=== PATIENT | female | born 1950 | race Hispanic/Latino ===

== ENCOUNTER → 2018-01-12 | Day surgery (SDC) | payer OTHER ==
[2018-01-06 15:33] LABS: BASOPHILS % 0.3 % (0.0-1.0); EOSINOPHILS # (AUTO) 0.1 (0.0-0.4); EOSINOPHILS % 1.9 % (0.0-6.0); HEMATOCRIT 28.6 % (34.2-44.1); HEMOGLOBIN 9.1 g/dL (12.0-16.0); LYMPHOCYTES % 14.4 % (18.0-39.1); MEAN CORPUSCULAR HEMOGLOBIN 26.8 pg (28-32); MEAN CORPUSCULAR HGB CONC 31.8 g/dL (31-35); MEAN CORPUSCULAR VOLUME 84.1 fL (81-99); MONOCYTES # (AUTO) 0.6 (0.2-0.8); MONOCYTES % 8.9 % (4.4-11.3); NEUTROPHILS # (AUTO) 5.1 (2.1-6.9); NEUTROPHILS % 73.8 % (38.7-80.0); PLATELET COUNT 235 x10e3/uL (140-360); RED CELL DISTRIBUTION WIDTH 15.4 % (11.7-14.4)
[~2018-01-12] MED LIST: ALENDRONATE SOD35 MG PO; AMLODIPINE BESY10 MG PO; CARVEDILOL3.125 MG PO; CINNAMON500 MG PO; DAILY VITAMIN1 EAC4 PO; DICLOFENAC PO; FENTANYL CITRATE/PF 100MCG/2 ML INJ ONE; GABAPENTIN300 MG PO; GAS-X125 MG PO; GLYCOPYRROLATE INJ 1MG/ 5 ML SYR ONE; LEXAPRO10 MG PO; LOSARTAN POTAS100 MG PO; LOVASTATIN20 MG PO; MIDAZOLAM HCL 2 MG/2 ML VIAL ONE; OMEPRAZOLE40 MG PO; PROPOFOL IV EMULSION 10 MG/ML 50 ML VIAL ONE; [UNRECOGNIZED DRUG - OTHER] SC
== END | disposition home or self-care (01) ==
LOC: OR 06:36
PROVIDERS: ATTEND Internal Medicine Gastroenterology
DX: K29.50 Unspecified chronic gastritis without bleeding (principal); K31.7 Polyp of stomach and duodenum; K52.9 Noninfective gastroenteritis and colitis, unspecified; K57.30 Diverticulosis of large intestine without perforation or abscess without bleeding; K62.7 Radiation proctitis; K44.9 Diaphragmatic hernia without obstruction or gangrene; K21.9 Gastro-esophageal reflux disease without esophagitis; K64.1 Second degree hemorrhoids; E11.9 Type 2 diabetes mellitus without complications; I25.10 Atherosclerotic heart disease of native coronary artery without angina pectoris; I11.0 Hypertensive heart disease with heart failure; I50.9 Heart failure, unspecified; I44.4 Left anterior fascicular block; E78.5 Hyperlipidemia, unspecified; M19.90 Unspecified osteoarthritis, unspecified site; R07.89 Other chest pain; F32.9 Major depressive disorder, single episode, unspecified; Z01.810 Encounter for preprocedural cardiovascular examination; Z01.812 Encounter for preprocedural laboratory examination; Z79.4 Long term (current) use of insulin; Z68.35 Body mass index [BMI] 35.0-35.9, adult; Z85.41 Personal history of malignant neoplasm of cervix uteri; Z87.891 Personal history of nicotine dependence
CPT/HCPCS: 36415; 43239; 45380; 85025; 93005; J2250

== ENCOUNTER → 2018-02-16 | Day surgery (SDC) | payer OTHER ==
[2018-02-11 14:45] LABS: BASOPHILS % 0.4 % (0.0-1.0); EOSINOPHILS # (AUTO) 0.1 (0.0-0.4); EOSINOPHILS % 1.7 % (0.0-6.0); HEMATOCRIT 27.7 % (34.2-44.1); HEMOGLOBIN 8.4 g/dL (12.0-16.0); LYMPHOCYTES # (AUTO) 1.1 (1.0-3.2); LYMPHOCYTES % 13.5 % (18.0-39.1); MEAN CORPUSCULAR HEMOGLOBIN 25.5 pg (28-32); MEAN CORPUSCULAR HGB CONC 30.3 g/dL (31-35); MEAN CORPUSCULAR VOLUME 83.9 fL (81-99); MONOCYTES # (AUTO) 0.5 (0.2-0.8); MONOCYTES % 5.8 % (4.4-11.3); NEUTROPHILS # (AUTO) 5.9 (2.1-6.9); NEUTROPHILS % 75.6 % (38.7-80.0); PLATELET COUNT 414 x10e3/uL (140-360); RED CELL DISTRIBUTION WIDTH 15.3 % (11.7-14.4)
[2018-02-11 15:41] LABS: EOSINOPHILS % (MANUAL) 1 % (0-7); HYPOCHROMASIA SLIGHT; LYMPHOCYTES % (MANUAL) 12 % (19-48); MONOCYTES % (MANUAL) 9 % (3.4-9.0); NEUTROPHILS % (MANUAL) 77 % (40-74); PLATELET ESTIMATE SLIGHTLY INCREASED; PLATELET MORPHOLOGY COMMENT NORMAL; RBC MORPHOLOGY COMMENT NORMAL
[~2018-02-16] MED LIST changes: +CENTRUM COMPLE1 EACH PO; +CLONIDINE HCL0.1 MG PO; +DEXTROSE 5% 250ML 250 ML IV ONE; +FISH OIL 1,0001 EAC2 PO; -GLYCOPYRROLATE INJ 1MG/ 5 ML SYR ONE; +TRESIBA SC
== END | disposition home or self-care (01) ==
LOC: OR 07:55
PROVIDERS: ATTEND Internal Medicine Gastroenterology
DX: K31.7 Polyp of stomach and duodenum (principal); K29.50 Unspecified chronic gastritis without bleeding; K44.9 Diaphragmatic hernia without obstruction or gangrene; I11.0 Hypertensive heart disease with heart failure; I50.9 Heart failure, unspecified; E11.9 Type 2 diabetes mellitus without complications; K58.9 Irritable bowel syndrome, unspecified; D64.9 Anemia, unspecified; K62.7 Radiation proctitis; K64.8 Other hemorrhoids; N28.9 Disorder of kidney and ureter, unspecified; R76.8 Other specified abnormal immunological findings in serum; R82.90 Unspecified abnormal findings in urine; Z01.810 Encounter for preprocedural cardiovascular examination; Z01.812 Encounter for preprocedural laboratory examination; Z68.32 Body mass index [BMI] 32.0-32.9, adult; Z85.41 Personal history of malignant neoplasm of cervix uteri
CPT/HCPCS: 36415 ×2; 43239; 82948; 85025; 93005; J2250

== ENCOUNTER → 2018-12-22 | Outpatient (CLI) | payer MEDICARE ==
[~2018-12-22] MED LIST changes: -DEXTROSE 5% 250ML 250 ML IV ONE; -FENTANYL CITRATE/PF 100MCG/2 ML INJ ONE; -MIDAZOLAM HCL 2 MG/2 ML VIAL ONE; -PROPOFOL IV EMULSION 10 MG/ML 50 ML VIAL ONE; +REGADENOSON 0.4 MG/5 ML SYR IV ONE
--- NOTE | 2018-12-24 14:22 | Cardiology Report ---
DATE OF STUDY: December 22, 2018 LEXISCAN NUCLEAR STRESS TEST TECHNIQUE: The patient was given 10.9 millicuries of Myoview. Resting images were obtained in the horizontal long axis and vertical long axis and short axis. The patient was then hooked up to the EKG machine. Lexiscan was infused over 15 seconds. About 30 seconds after Lexiscan infusion, the patient was given 33 millicuries of Myoview. Stress images were obtained 30 minutes after completion of Lexiscan infusion. Stress images were obtained in the horizontal long axis and vertical long axis and short axis. RESULTS 1. The resting EKG demonstrated normal sinus rhythm with nonspecific ST and T wave changes. 2. There were no EKG changes and no symptoms during Lexiscan infusion. 3. The patient had normal perfusion to all segments of the myocardium in both stress and rest. 4. There were normal left ventricular size and function with an ejection fraction of 50%. CONCLUSION: The patient has normal perfusion to all segments of the myocardium in both stress and rest. There is no evidence of ischemia. This is a normal Lexiscan nuclear stress test. Job#: [id number]
== END ==
LOC: NM 07:32
PROVIDERS: ATTEND Internal Medicine Cardiovascular Disease
DX: R07.2 Precordial pain (principal)
CPT/HCPCS: 78452; 93017; A9502; J2785

== ENCOUNTER 2019-05-25 18:37 | Inpatient (IN) | payer MEDICARE, OTHER ==
[~2019-05-25] VITALS: Ht 157.5 cm; Wt 90.3 kg
[~2019-05-25 18:37] MED LIST changes: -REGADENOSON 0.4 MG/5 ML SYR IV ONE
--- OUTSIDE RECORDS SUMMARY | 2019-05-25 18:41 | XMS REPORT | Clinical Summary ---
Author Author [facility] Organization [facility] Address Unknown Phone Unavailable Care Team Providers Care Criminal Judge Name Role Phone Faustino Louie MD PCP Allergies Comments Active Allergy Reactions Severity Noted Date Iodine Hives 02/06/2018 Medications End Date Status Medication Sig Dispensed Refills Start Date Active amLODIPine (NORVASC) 10 0 mg tablet 8 Active ONETOUCH ULTRA TEST strip 0 test strips 8 Active carvedilol (COREG) 6.25 0 MG tablet 8 Active cefuroxime (CEFTIN) 500 0 MG tablet 8 Active clonIDINE (CATAPRES) 0.1 0 MG tablet 8 Active clotrimazole-betamethason 0 e (LOTRISONE) 1-0.05 % 8 cream Active dicyclomine (BENTYL) 10 0 MG capsule 8 Active escitalopram (LEXAPRO) 10 0 MG tablet 8 Active gabapentin (NEURONTIN) 0 600 mg tablet 8 Active PROCTO-MED HC 2.5 % 0 rectal cream 8 Active TRESIBA FLEXTOUCH U-100 0 100 unit/mL (3 mL) 8 insulin pen Active LANTUS SOLOSTAR U-100 0 INSULIN 100 unit/mL 8 injection (pen) Active ONETOUCH DELICA LANCETS 0 33 gauge misc 8 Active losartan (COZAAR) 100 MG 0 tablet 8 Active lovastatin (MEVACOR) 20 0 MG tablet 8 Active CANASA 1,000 mg 0 02/27/201 suppository 8 Active omeprazole (PriLOSEC) 40 0 MG capsule 8 Active BD INSULIN PEN NEEDLE UF 0 SHORT 31 gauge x 5/16" 8 needle Active polyethylene 0 glycol-electrolytes 8 (NULYTELY) 420 gram solution Active sulfamethoxazole-trimetho 0 prim (BACTRIM DS) 800-160 8 mg per tablet Active Problems Not on file Social History Date Tobacco Use Types Packs/Day Years Used Never Smoker Smokeless Tobacco: Never Used Alcohol Use Drinks/Week oz/Week Comments No Sex Assigned at Date Recorded Not on file Industry Job Start Date Occupation Not on file Not on file Not on file Travel End Travel History Travel Start No recent travel history available. Last Filed Vital Signs Not on file Plan of Treatment Health Maintenance Due Date Last Done Comments BREAST CANCER SCREENING 2002 COLONOSCOPY SCREENING 2002 SHINGLES VACCINES (#1) 2002 65+ PNEUMOCOCCAL VACCINE 2017 (1 of 2 - PCV13) INFLUENZA VACCINE 06/16/2019 Results Not on fileafter 05/24/2018 Insurance Type Payer Benefit Subscriber ID Effective Phone Address Plan / Dates Group HMO [employer] xxxxxxxxx 2018- [employer] Present Advance Directives Patient has advance care planning documents on file. For more information, dar[place] contact: Raj Cortés [address] [place] [address]
--- OUTSIDE RECORDS SUMMARY | 2019-05-25 18:41 | XMS REPORT | Continuity of Care Document ---
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 Venkatesh Martinez Joint pain Active Problem 05/19/2019 Venkatesh Martinez DELL positive Active Problem 05/19/2019 Venkatesh Martinez Skin rash Active Problem 05/19/2019 Venkatesh Martinez Long-term use of high-risk medication Active Problem 05/19/2019 Venkatesh Martinez Isolated proteinuria Active Diagnosis 10/05/2018 Venkatesh Martinez Proteinuria, unspecified Active Diagnosis 01/29/2019 Venkatesh Martinez Medications Medication Details Route Status Patient Instructions Ordering Provider Order Date Source Hydroxychloroquine Sulfate 1 tablet with food or milk Orally Active 200 MG Orally bid Tony 05/27/2019 Venkatesh Martinez Benlysta 10mg/kg at 187 lbs (850mg) IV Active 120mg IV [id number] Tony 03/30/2019 Venkatesh Martinez Ciprofloxacin HCl 1 tablet Orally Active 500 MG Orally every 12 hrs [place] 02/07/2019 Venkateshpurvi Martinez Ciprofloxacin 1 tablet Orally Active 500 MG Orally twice a day Tony 02/04/2019 Venkatesh Martinez Benlysta loading dose 10mg/kg at 187 lbs (850mg) Intravenous Active 120mg Intravenous at week 2 and 4 Martinez 01/19/2019 Venkatesh Martinez Benlysta loading dose 10mg/kg at 187 lbs (850mg) IV Active 400mg IV at weeks 0 2 and 4 Martinez 01/19/2019 Venkatesh Martinez Benlysta 10mg/kg at 187 lbs (850mg) IV Active 120mg IV [id number] Tony 11/11/2018 Venkatesh Martinez Benlysta 10mg/kg at 187 lbs (850mg) IV Active 400 MG IV q4 weeks 11/11/2018 Venkatesh Martinez Benlysta loading dose 10mg/kg at 187 lbs (850mg) IV Active 400mg IV at weeks 0 2 and 4 [place] 11/11/2018 Venkatesh Martinez Benlysta loading dose 10mg/kg at 187 lbs (850mg) Intravenous Active 120mg Intravenous at week 2 and 4 [place] 11/11/2018 Venkatesh Martinez Nitrofurantoin-Macrobid 100 mg 7d One capsule orally Active 100 mg orally twice a day 10/01/2018 Venkatesh Martinez Folic Acid 1 tablet Orally Active 1 MG Orally Once a day 09/29/2018 Venkatesh Martinez Methotrexate 8 tabs Orally Active 2.5mg Orally Once a week 09/29/2018 Venkatesh Martinez Methotrexate 8 tabs Orally Active 2.5mg Orally Once a week 09/29/2018 Venkatesh Martinez Lisinopril 1 tablet Orally Active 5 MG Orally Once a day 09/16/2018 Venkatesh Martinez PredniSONE 1 tablet with food or milk Orally Active 5 MG Orally Once a day 09/16/2018 Venkatesh Martinez Plaquenil 1 tablet with food or milk Orally Active 200 MG Orally Once a day 09/16/2018 Venkatesh Martinez PredniSONE 1 tablet Orally Active 10 MG Orally Once a day 09/16/2018 Venkatesh Martinez Omeprazole 1 capsule Orally Active 40 MG Orally Once a day Venkatesh Martinez Escitalopram Oxalate 1 tablet Orally Active 10 MG Orally Once a day Venkatesh Martinez Clonidine HCl 1 tablet at bedtime Orally Active 0.1 MG Orally Once a day Venkatesh Martinez Tresiba 48 units subcutaneous Active 180 units subcutaneous once a day Venkatesh Martinez Lisinopril TAKE 1 TABLET BY MOUTH ONCE DAILY NA Active 5 MG Venkatesh Martinez Hydroxychloroquine Sulfate 1 tablet with food or milk Orally Active 200 MG Orally bid Venkatesh Martinez Ferrous Sulfate as directed Orally Active 325 MG Orally Venkatesh Martinez Gabapentin 1 capsule Orally Active 600 MG Orally Three times a day Venkatesh Martinez Magnesium 2 tablets with a meal Orally Active 200 MG Orally Once a day Venkatesh Martinez Vitamin E 1 capsule Orally Active 1000 UNIT Orally Once a day [facility] Venkatesh Martinez Fiber as directed Orally Active - Orally Tony Venkatesh Martinez Carvedilol 1 tablet Orally Active 6.25 MG Orally twice a day [facility] Venkatesh Martinez Lovastatin 1 tablet with the evening meal Orally Active 20 MG Orally once at bedtime Tony Venkatesh Martinez Losartan Potassium-HCTZ 1 tablet Orally Active 100-12.5 MG Orally Once a day Tony Venkatesh Martinez Furosemide 1 tablet Orally Active 20 MG Orally Once a day [facility] Venkatesh Martinez Centrum as directed Orally Active - Orally Tony Venkatesh Martinez Vitamin D3 as directed NA Active [id number] UNIT/GM Tony Venkatesh Martinez Alendronate Sodium 1 tablet Orally Active 35 MG Orally once a week Tony Venkatesh Martinez Vitamin B12 as directed Orally Active 100 MCG Orally [facility] Venkatesh Martinez Vitamin C 1 tablet Orally Active 100 MG Orally Once a day [facility] Venkatesh Martinez Lisinopril 1 tablet Orally Active 5 MG Orally Once a day [facility] Venkatesh Martinez Plaquenil 1 tablet with food or milk Orally Active 200 MG Orally Once a day [facility] Venkatesh Martinez Allergies, Adverse Reactions, Alerts Substance Category Reaction Severity Reaction type Status Date Reported Comments Source N.K.D.A. Adverse Reaction Info Not Available Adverse Reaction Active 10/29/2018 Venkatesh Angeleser Iodine Adverse Reaction Info Not Available Adverse Reaction Active 03/31/2019 Venkatesh Martinez Immunizations No Data Provided for This Section Results No Data Provided for This Section Pathology Reports No Data Provided for This Section Diagnostic Reports No Data Provided for This Section Consultation Notes No Data Provided for This Section Discharge Summaries No Data Provided for This Section History and Physicals No Data Provided for This Section Vital Signs Vital Sign Value Date Comments Source Weight 195.7 03/31/2019 Venkatesh Martinez Height 60 03/31/2019 Venkatesh Martinez Temperature Oral (F) 98.9 F 03/31/2019 Venkatesh Martinez Heart Rate 78 03/31/2019 Venkatesh Martinez Diastolic (mm Hg) 80 03/31/2019 Venkatesh Martinez Systolic (mm Hg) 140 03/31/2019 Venkatesh Martinez Weight 198.2 03/17/2019 Venkatesh Martinez Height 60 03/17/2019 Venkatesh Martinez Temperature Oral (F) 98.1 F 03/17/2019 Venkatesh Martinez Heart Rate 64 03/17/2019 Venkatesh Martinez Diastolic (mm Hg) 76 03/17/2019 Venkatesh Martinez Systolic (mm Hg) 148 03/17/2019 Venkatesh Martinez Weight 196.1 01/27/2019 Venkatesh Martinez Height 60 01/27/2019 Venkatesh Martinez Temperature Oral (F) 97.5 F 01/27/2019 Venkatesh Martinez Heart Rate 68 01/27/2019 Venkatesh Martinez Diastolic (mm Hg) 60 01/27/2019 Venkatesh Martinez Systolic (mm Hg) 128 01/27/2019 Venkatesh Martinez Weight 187.6 10/29/2018 Venkatesh Martinez Height 60 10/29/2018 Venkatesh Martinez Temperature Oral (F) 99.7 F 10/29/2018 Venkatesh Martinez Heart Rate 72 10/29/2018 Venkatesh Martinez Diastolic (mm Hg) 60 10/29/2018 Venkatesh Martinez Systolic (mm Hg) 112 10/29/2018 Venkatesh Martinez Weight 181.3 09/29/2018 Venkatesh Martinez Height 60 09/29/2018 Venkatesh Martinez Temperature Oral (F) 97.2 F 09/29/2018 Venkatesh Martinez Heart Rate 70 09/29/2018 Venkatesh Martinez Diastolic (mm Hg) 64 09/29/2018 Venkatesh Martinez Systolic (mm Hg) 130 09/29/2018 Venkatesh Martinez Weight 181 09/16/2018 Venkatesh Martinez Height 60 09/16/2018 Venkatesh Martinez Temperature Oral (F) 98.7 F 09/16/2018 Venkatesh Martinez Heart Rate 72 09/16/2018 Venkatesh Martinez Diastolic (mm Hg) 68 09/16/2018 Venkatesh Martinez Systolic (mm Hg) 140 09/16/2018 Venkatesh Martinez Encounters No Data Provided for This Section Procedures No Data Provided for This Section Assessment and Plan No Data Provided for This Section Plan of Care No Data Provided for This Section Social History No Data Provided for This Section Family History No Data Provided for This Section Advance Directives No Data Provided for This Section Functional Status No Data Provided for This Section
--- OUTSIDE RECORDS SUMMARY | 2019-05-25 18:42 | XMS REPORT ---
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
--- OUTSIDE RECORDS SUMMARY | 2019-05-25 18:42 | XMS REPORT ---
Author Author Sergio Martinez Organization [employer] Address Unknown Phone Unavailable Care Team Providers Care Seasonal Clerk Name Role Phone Sergio Martinez CP Unavailable [...]
--- OUTSIDE RECORDS SUMMARY | 2019-05-25 18:42 | XMS REPORT ---
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
--- OUTSIDE RECORDS SUMMARY | 2019-05-25 18:42 | XMS REPORT ---
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 Problem Long-term use of high-risk medication Z79.899 Active Problem Skin rash R21 Active Problem Joint pain M25.50 Active Problem Raynauds disease I73.00 Active Problem DELL positive R76.8 Active Medications Medication Code System Code Instructions Start Date End Date Status Dosage Omeprazole [facility] 28168733239 40 MG Orally Once a day Active 1 capsule Escitalopram Oxalate ND 72409103772 10 MG Orally Once a day Active 1 tablet Clonidine HCl ND 21804500523 0.1 MG Orally Once a day Active 1 tablet at bedtime Tresiba ND 0 180 units subcutaneous once a day Active 48 units Lisinopril [facility] 57673291396 5 MG Active TAKE 1 TABLET BY MOUTH ONCE DAILY Folic Acid ND 40998982480 1 MG Orally Once a day Sep 29, 2018 Active 1 tablet Hydroxychloroquine Sulfate ND 13446932350 200 MG Orally bid Active 1 tablet with food or milk Ferrous Sulfate [facility] [address]-57 325 MG Orally Active as directed Gabapentin ND 94427537904 600 MG Orally Three times a day Active 1 capsule Magnesium [facility] 47564999163 200 MG Orally Once a day Active 2 tablets with a meal Vitamin E ND 45446191797 1000 UNIT Orally Once a day Active 1 capsule Fiber ND 0 - Orally Active as directed Benlysta [facility] 84097987771 120mg IV [id number] Nov 11, 2018 Active 10mg/kg at 187 lbs (850mg) PredniSONE ND 22292638554 5 MG Orally Once a day Sep 16, 2018 Active 1 tablet with food or milk Carvedilol [facility] 11525835489 6.25 MG Orally twice a day Active 1 tablet Lovastatin [facility] 12098732753 20 MG Orally once at bedtime Active 1 tablet with the evening meal Methotrexate [facility] 38759914455 2.5mg Orally Once a week Sep 29, 2018 Active 8 tabs Losartan Potassium-HCTZ [facility] 75392686882 100-12.5 MG Orally Once a day Active 1 tablet Furosemide [facility] 97821914891 20 MG Orally Once a day Active 1 tablet Centrum [facility] 19212139869 - Orally Active as directed Vitamin D3 [facility] 04245008655 515023 UNIT/GM Active as directed Alendronate Sodium [facility] 40965356480 35 MG Orally once a week Active 1 tablet Vitamin B12 [facility] 48156182603 100 MCG Orally Active as directed Vitamin C [facility] 46596048744 100 MG Orally Once a day Active 1 tablet Benlysta [facility] 05445266470 400 MG IV q4 weeks Nov 11, 2018 Active 10mg/kg at 187 lbs (850mg) Vital Signs Date/Time: March 31, 2019 BMI 38.22 Index Weight 195.7 lbs Height 60 in Temperature 98.9 F Cardiac Monitoring Heart Rate 78 /min Blood Pressure Diastolic 80 mm Hg Blood Pressure Systolic 140 mm Hg Results No Known Results Summary Purpose [employer] Submission
--- OUTSIDE RECORDS SUMMARY | 2019-05-25 18:42 | XMS REPORT ---
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
--- OUTSIDE RECORDS SUMMARY | 2019-05-25 18:42 | XMS REPORT ---
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
--- OUTSIDE RECORDS SUMMARY | 2019-05-25 18:42 | XMS REPORT ---
Author Author Colten Jimenez [facility] eClinicalWorks Address Unknown Phone Unavailable Care Team Providers Care Hospital Coder Name Role Phone Colten Jimenez CP Unavailable Allergies, Adverse Reactions, Alerts Substance Reaction Event Type N.K.D.A. 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 Problem Joint pain M25.50 Active Problem DELL positive R76.8 Active Problem Skin rash R21 Active Medications Medication Code System Code Instructions Start Date End Date Status Dosage Tresiba NDC 0 180 units subcutaneous once a day Active 48 units Carvedilol ND 68384473423 6.25 MG Orally twice a day Active 1 tablet Gabapentin ND 94062042041 600 MG Orally Three times a day Active 1 capsule Lovastatin ND 86426563862 20 MG Orally once at bedtime Active 1 tablet with the evening meal Centrum ND 48055337123 - Orally Active as directed Methotrexate NDC 0 2.5mg Orally Once a week Sep 29, 2018 January 27, 2019 Active 4 tabs x 1wk, 6 tabs x 1wk and then take 8 tabs altogether once a week Magnesium ND 51014828643 200 MG Orally Once a day Active 2 tablets with a meal Clonidine HCl ND 84770202618 0.1 MG Orally Once a day Active 1 tablet at bedtime Alendronate Sodium ND 96294049021 35 MG Orally once a week Active 1 tablet Vitamin B12 ND 02781505001 100 MCG Orally Active as directed Fiber NDC 0 - Orally Active as directed Folic Acid ND 44587351640 1 MG Orally Once a day Sep 29, 2018 January 27, 2019 Active 1 tablet Vitamin D3 [facility] 25309898087 323777 UNIT/GM Active as directed Vitamin C [facility] 56270626959 100 MG Orally Once a day Active 1 tablet Losartan Potassium-HCTZ [facility] 66052529438 100-12.5 MG Orally Once a day Active 1 tablet Escitalopram Oxalate [facility] 02503352145 10 MG Orally Once a day Active 1 tablet Plaquenil [facility] 31725078342 200 MG Orally Once a day Sep 16, 2018 Dec 15, 2018 Active 1 tablet with food or milk Vitamin E [facility] 93758458923 1000 UNIT Orally Once a day Active 1 capsule Omeprazole [facility] 57866423985 40 MG Orally Once a day Active 1 capsule Ferrous Sulfate [facility] [address]-97 325 MG Orally Active as directed PredniSONE [facility] 08914355542 10 MG Orally Once a day Sep 16, 2018 Active 1 tablet Vital Signs Date/Time: Sep 29, 2018 BMI 35.40 Index Weight 181.3 lbs Height 60 in Temperature 97.2 F Cardiac Monitoring Heart Rate 70 /min Blood Pressure Diastolic 64 mm Hg Blood Pressure Systolic 130 mm Hg Results Name Result Date Reference Range Unit Abnormality Flag PROTEIN/CREATININE RATIO, URINE ----CALC PROTEIN/CREATININE 1314 [id number] SEE BELOW MG/G CREAT ----PROTEIN, URINE, CONC. 74 [id number] NOT ESTAB MG/DL ----CREATININE, URINE, CONC. 56.3 [id number] NOT ESTAB MG/DL SEDIMENTATION RATE ----SEDIMENTATION RATE 33 [id number] 0-20 MM/HOUR H COMPREHENSIVE METABOLIC PANEL ----CALC A/G RATIO 1.4 [id number] 1.0-2.6 RATIO ----CALC GLOBULIN 2.9 [id number] 1.9-3.7 G/DL ----ALKALINE PHOSPHATASE 70 20180929 40-142 U/L ----BILIRUBIN, TOTAL <0.2 20180929 <=1.2 MG/DL ----CHLORIDE 108 20180929 95-107 MEQ/L H ----ALT 11 20180929 5-40 U/L ----POTASSIUM 5.0 20180929 3.5-5.4 MEQ/L ----AST 18 20180929 9-40 U/L ----SODIUM 141 20180929 133-146 MEQ/L ----CALC BUN/CREAT 27 40203878 6-28 RATIO ---- eGFR NON- AMER. 31 [id number] >60 ML/MIN/1.73 L ----CALCIUM 10.3 [id number] 8.5-10.5 MG/DL ----CARBON DIOXIDE 24 20180929 19-31 MEQ/L ----ALBUMIN 4.2 [id number] 3.5-5.2 G/DL ----PROTEIN, TOTAL 7.1 01295694 6.1-8.3 G/DL ----GLUCOSE 130 36453901 70-99 MG/DL H ----BUN 46 52023913 8-23 MG/DL H ----CREATININE 1.70 [id number] 0.60-1.30 MG/DL H ---- eGFR AMER. 36 [id number] >60 ML/MIN/1.73 L URINALYSIS WITH MICROSCOPIC ----PROTEIN 2+ [id number] NEGATIVE A ----pH 5.0 17122398 5.0-9.0 ----KETONES NEGATIVE 31427115 NEGATIVE ----GLUCOSE NEGATIVE 03556191 NEGATIVE ----BILIRUBIN NEGATIVE 91969033 NEGATIVE ----OCCULT BLOOD NEGATIVE 50050670 NEGATIVE ----UROBILINOGEN <2.0 93704853 <=2.0 MG/DL ----EPITHELIAL CELLS 0 84140953 0-10 /HPF ----LEUKOCYTE ESTERASE TRACE 97764745 NEGATIVE A ----BACTERIA 1+ [id number] NEGATIVE A ----NITRITE POSITIVE 23691390 NEGATIVE A ----APPEARANCE SLIGHTLY CLOUDY 10251994 CLEAR ----WHITE BLOOD CELLS 5-10 88758293 0-5 /HPF A ----RED BLOOD CELLS 0-2 06976911 0-5 /HPF ----SPECIFIC GRAVITY 1.015 05477794 1.005-1.035 ----COLOR YELLOW 63152267 YELLOW-STRAW C-REACTIVE PROTEIN ----C-REACTIVE PROTEIN 0.2 02249957 <0.5 MG/DL CBC W/AUTO DIFF ----HEMOGLOBIN 10.1 30169406 11.5-15.5 G/DL L ----RBC 3.59 44023584 3.80-5.10 M/UL L ----MCV 82.5 45101228 80.0-100.0 fL ----HEMATOCRIT 29.6 16000601 34.0-45.0 % L ----MCHC 34.1 97105818 32.0-35.5 G/DL ----MCH 28.1 42250535 27.0-34.0 PG ----NEUTROPHILS 81.1 01536510 40.0-74.0 % H ----RDW 15.7 43919679 11.0-15.0 % H ----LYMPHOCYTES 10.8 10985611 19.0-48.0 % L ----EOSINOPHILS 1.3 46044216 0.0-7.0 % ----MONOCYTES 6.4 91878816 4.0-13.0 % ----PLATELET COUNT 274 03313317 130-400 K/UL ----BASOPHILS 0.4 00030058 0.0-2.0 % ----WBC 9.8 [id number] 4.0-11.0 K/UL Summary Purpose eClinicalWorks Submission
--- OUTSIDE RECORDS SUMMARY | 2019-05-25 18:42 | XMS REPORT ---
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 29953932927 1 MG Orally Once a day Sep 29, 2018 Active 1 tablet Losartan Potassium-HCTZ [facility] 23622906811 100-12.5 MG Orally Once a day Active 1 tablet Tresiba NDC 0 180 units subcutaneous once a day Active 48 units Hydroxychloroquine Sulfate ND 57454247362 200 MG Orally bid Active 1 tablet with food or milk Magnesium [facility] 18278651780 200 MG Orally Once a day Active 2 tablets with a meal Benlysta [facility] 59343466017 400 MG IV q4 weeks Nov 11, 2018 Active 10mg/kg at 187 lbs (850mg) Alendronate Sodium [facility] 24457681561 35 MG Orally once a week Active 1 tablet Benlysta [facility] 67361241184 120mg IV [id number] Nov 11, 2018 Active 10mg/kg at 187 lbs (850mg) Furosemide [facility] 58804305785 20 MG Orally Once a day Active 1 tablet Omeprazole [facility] 35294237100 40 MG Orally Once a day Active 1 capsule Centrum [facility] 09598579991 - Orally Active as directed Vitamin D3 [facility] 62274151593 577850 UNIT/GM Active as directed Vitamin E [facility] 54185188501 1000 UNIT Orally Once a day Active 1 capsule Fiber ND 0 - Orally Active as directed Gabapentin [facility] 92150644588 600 MG Orally Three times a day Active 1 capsule Clonidine HCl [facility] 96447836075 0.1 MG Orally Once a day Active 1 tablet at bedtime Lisinopril [facility] 34831775115 5 MG Active TAKE 1 TABLET BY MOUTH ONCE DAILY Methotrexate [facility] 57127135084 2.5mg Orally Once a week Sep 29, 2018 Active 8 tabs PredniSONE [facility] 38963438782 5 MG Orally Once a day Sep 16, 2018 Active 1 tablet with food or milk Carvedilol [facility] 19234269879 6.25 MG Orally twice a day Active 1 tablet Ferrous Sulfate [facility] [address]-53 325 MG Orally Active as directed Vitamin B12 [facility] 72112565011 100 MCG Orally Active as directed Lovastatin [facility] 21117363638 20 MG Orally once at bedtime Active 1 tablet with the evening meal Escitalopram Oxalate [facility] 58823927475 10 MG Orally Once a day Active 1 tablet Vitamin C [facility] 80474921101 100 MG Orally Once a day Active 1 tablet Vital Signs Date/Time: March 17, 2019 BMI 39 Index Weight 198.2 lbs Height 60 in Temperature 98.1 F Cardiac Monitoring Heart Rate 64 /min Blood Pressure Diastolic 76 mm Hg Blood Pressure Systolic 148 mm Hg Results No Known Results Summary Purpose eClinicalWorks Submission
--- OUTSIDE RECORDS SUMMARY | 2019-05-25 18:43 | XMS REPORT ---
Author Author Sergio Martinez Organization eClinicalWorks Address Unknown Phone Unavailable Care Team Providers Care Therapist Radiation Name Role Phone Sergio Martinez CP Unavailable Allergies No Known Allergies Problems Problem Type Condition Code Onset Dates Condition Status Problem DELL positive R76.8 Active Problem Skin rash R21 Active Problem Raynauds disease I73.00 Active Problem Joint pain M25.50 Active Medications No Known Medications Results No Known Results Summary Purpose eClinicalWorks Submission
--- OUTSIDE RECORDS SUMMARY | 2019-05-25 18:43 | XMS REPORT ---
Author Author Sergio Martinez Organization eClinicalWorks Address Unknown Phone Unavailable Care Team Providers Care Dental Claims Processor Name Role Phone Sergio Martinez CP Unavailable [...] Instructions Start Date End Date Status Dosage Benlysta loading dose NDC 90758981446 120mg Intravenous at week 2 and 4 January 19, 2019 Active 10mg/kg at 187 lbs (850mg) Benlysta loading dose NDC 01743923417 400mg IV at weeks 0 2 and 4 January 19, 2019 Active 10mg/kg at 187 lbs (850mg) Results No Known Results Summary Purpose eClinicalWorks Submission
--- OUTSIDE RECORDS SUMMARY | 2019-05-25 18:43 | XMS REPORT ---
Author Author Colten Jimenez [facility] eClinicalWorks Address Unknown Phone Unavailable Care Team Providers Care Spray Painter Helper Name Role Phone Colten Jimenez Unavailable Allergies, Adverse Reactions, Alerts Substance Reaction Event Type N.K.D.A. 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 Problem Joint pain M25.50 Active Problem DELL positive R76.8 Active Problem Skin rash R21 Active Medications Medication Code System Code Instructions Start Date End Date Status Dosage Gabapentin [facility] 60640590855 600 MG Orally Three times a day Active 1 capsule Omeprazole ND 91512985219 40 MG Orally Once a day Active 1 capsule Lovastatin ND 53134080770 20 MG Orally once at bedtime Active 1 tablet with the evening meal Centrum [facility] 51955565535 - Orally Active as directed PredniSONE [facility] 30385756046 5 MG Orally Once a day Sep 16, 2018 Active 1 tablet with food or milk Alendronate Sodium ND 36676017254 35 MG Orally once a week Active 1 tablet Magnesium ND 72347755811 200 MG Orally Once a day Active 2 tablets with a meal Clonidine HCl [facility] 73347924925 0.1 MG Orally Once a day Active 1 tablet at bedtime Carvedilol [facility] 10828855775 6.25 MG Orally twice a day Active 1 tablet Hydroxychloroquine Sulfate ND 71062204403 200 MG Orally Once a day Active 1 tablet with food or milk Plaquenil [facility] 80243778466 200 MG Orally Once a day Sep 16, 2018 Active 1 tablet with food or milk Vitamin E ND 39218127412 1000 UNIT Orally Once a day Active 1 capsule Fiber ND 0 - Orally Active as directed Vitamin B12 [facility] 87153612561 100 MCG Orally Active as directed Vitamin C [facility] 07709322692 100 MG Orally Once a day Active 1 tablet Escitalopram Oxalate [facility] 40536486569 10 MG Orally Once a day Active 1 tablet Losartan Potassium-HCTZ [facility] 00852429111 100-12.5 MG Orally Once a day Active 1 tablet Folic Acid [facility] 48343112296 1 MG Orally Once a day Sep 29, 2018 Active 1 tablet Lisinopril [facility] 96535866489 5 MG Orally Once a day Active 1 tablet Ferrous Sulfate [facility] [address]-64 325 MG Orally Active as directed Tresiba NDC 0 180 units subcutaneous once a day Active 48 units Methotrexate NDC 0 2.5mg Orally Once a week Sep 29, 2018 Active 8 tabs Vitamin D3 [facility] 37590414922 398299 UNIT/GM Active as directed Vital Signs Date/Time: Oct 29, 2018 BMI 36.63 Index Weight 187.6 lbs Height 60 in Temperature 99.7 F Cardiac Monitoring Heart Rate 72 /min Blood Pressure Diastolic 60 mm Hg Blood Pressure Systolic 112 mm Hg Results No Known Results Summary Purpose eClinicalWorks Submission
--- OUTSIDE RECORDS SUMMARY | 2019-05-25 18:43 | XMS REPORT ---
Author Author Colten Jimenez [facility] eClinicalWorks Address Unknown Phone Unavailable Care Team Providers Care Clerical Office Worker Name Role Phone Colten Jimenez Unavailable Allergies No Known Allergies Problems Problem Type Condition Code Onset Dates Condition Status Problem DELL positive R76.8 Active Problem Skin rash R21 Active Problem Raynauds disease I73.00 Active Problem Joint pain M25.50 Active Medications Medication Code System Code Instructions Start Date End Date Status Dosage Lisinopril [facility] 81349173515 5 MG Orally Once a day Sep 16, 2018 Active 1 tablet Results No Known Results Summary Purpose eClinicalWorks Submission
--- OUTSIDE RECORDS SUMMARY | 2019-05-25 18:43 | XMS REPORT ---
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 Problem Lupus (systemic lupus erythematosus) M32.9 Active Problem Raynauds disease I73.00 Active Problem 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 Problem Joint pain M25.50 Active Problem DELL positive R76.8 Active Problem Skin rash R21 Active Medications Medication Code System Code Instructions Start Date End Date Status Dosage Omeprazole [facility] 99358421721 40 MG Orally Once a day Active 1 capsule Clonidine HCl [facility] 92496438310 0.1 MG Orally Once a day Active 1 tablet at bedtime Hydroxychloroquine Sulfate ND 94575728328 200 MG Orally bid May 27, 2019 Active 1 tablet with food or milk PredniSONE ND 80141984827 5 MG Orally Once a day Sep 16, 2018 Active 1 tablet with food or milk Losartan Potassium-HCTZ ND 50023931215 100-12.5 MG Orally Once a day Active 1 tablet Plaquenil [facility] 89110012355 200 MG Orally Once a day Active 1 tablet with food or milk Benlysta [facility] 07291631174 120mg IV [id number] Nov 11, 2018 Active 10mg/kg at 187 lbs (850mg) Lovastatin ND 36333880205 20 MG Orally once at bedtime Active 1 tablet with the evening meal Methotrexate ND 50548386236 2.5mg Orally Once a week Sep 29, 2018 Active 4 tabs Centrum [facility] 74857646440 - Orally Active as directed Vitamin E ND 54200983253 1000 UNIT Orally Once a day Active 1 capsule Magnesium ND 26675873337 200 MG Orally Once a day Active 2 tablets with a meal Benlysta [facility] 18191933881 400 MG IV q4 weeks Nov 11, 2018 Active 10mg/kg at 187 lbs (850mg) Folic Acid [facility] 01108000442 1 MG Orally Once a day Sep 29, 2018 Active 1 tablet Carvedilol [facility] 19624448617 6.25 MG Orally twice a day Active 1 tablet Escitalopram Oxalate [facility] 10759142221 10 MG Orally Once a day Active 1 tablet Alendronate Sodium [facility] 70513321540 35 MG Orally once a week Active 1 tablet Tresiba ND 0 180 units subcutaneous once a day Active 48 units Gabapentin [facility] 12158577369 600 MG Orally Three times a day Active 1 capsule Vitamin D3 [facility] 36700969849 756932 UNIT/GM Active as directed Vitamin B12 [facility] 63355493173 100 MCG Orally Active as directed Lisinopril [facility] 55386580655 5 MG Orally Once a day Active 1 tablet Vitamin C [facility] 66703253132 100 MG Orally Once a day Active 1 tablet Ferrous Sulfate [facility] [address]-52 325 MG Orally Active as directed Fiber [facility] 0 - Orally Active as directed Vital Signs Date/Time: January 27, 2019 BMI 38.29 Index Weight 196.1 lbs Height 60 in Temperature 97.5 F Cardiac Monitoring Heart Rate 68 /min Blood Pressure Diastolic 60 mm Hg Blood Pressure Systolic 128 mm Hg Results No Known Results Summary Purpose eClinicalWorks Submission
--- OUTSIDE RECORDS SUMMARY | 2019-05-25 18:43 | XMS REPORT ---
Author Author Colten Jimenez Organization eClinicalWorks Address Unknown Phone Unavailable Care Team Providers Care Stable Hand Name Role Phone Colten Jimenez CP Unavailable [...] Start Date End Date Status Dosage Benlysta [facility] 64822972111 120mg IV [id number] March 30, 2019 Active 10mg/kg at 187 lbs (850mg) Results No Known Results Summary Purpose eClinicalWorks Submission
--- OUTSIDE RECORDS SUMMARY | 2019-05-25 18:43 | XMS REPORT ---
Author Author Colten Jimenez [facility] eClinicalWorks Address Unknown Phone Unavailable Care Team Providers Care Data Miner Name Role Phone Colten Jimenez CP Unavailable [...] Start Date End Date Status Dosage Benlysta [facility] 91396512578 400 MG Intravenously q4 weeks Nov 11, 2018 Active 10mg/kg at 187 lbs (850mg) Benlysta NDC 19218840484 120mg IV [id number] March 30, 2019 Active 10mg/kg at 187 lbs (850mg) Results No Known Results Summary Purpose eClinicalWorks Submission
--- OUTSIDE RECORDS SUMMARY | 2019-05-25 18:44 | XMS REPORT ---
Author Author Colten Jimenez Organization eClinicalWorks Address Unknown Phone Unavailable Care Team Providers Care Stable Cleaner Name Role Phone Colten Jimenez CP Unavailable [...] Start Date End Date Status Dosage Ciprofloxacin [facility] [address]-31 500 MG Orally twice a day February 04, 2019 February 14, 2019 Active 1 tablet Results No Known Results Summary Purpose eClinicalWorks Submission
--- OUTSIDE RECORDS SUMMARY | 2019-05-25 18:44 | XMS REPORT ---
Author Author Emmie Jarquin [facility] eClinicalWorks Address Unknown Phone Unavailable Care Team Providers Care Pillowcase Folder Name Role Phone Emmie Jarquin Unavailable Allergies No Known Allergies Problems Problem Type Condition Code Onset Dates Condition Status Assessment Joint pain M25.50 Active Assessment Raynauds disease I73.00 Active Problem DELL positive R76.8 Active Problem Skin rash R21 Active Problem Raynauds disease I73.00 Active Assessment Skin rash R21 Active Assessment DELL positive R76.8 Active Problem Joint pain M25.50 Active Medications Medication Code System Code Instructions Start Date End Date Status Dosage Clonidine HCl [facility] 06664343086 0.1 MG Orally Once a day Active 1 tablet at bedtime Omeprazole ND 19816079684 40 MG Orally Once a day Active 1 capsule Escitalopram Oxalate ND 01124652712 10 MG Orally Once a day Active 1 tablet Plaquenil [facility] 25235428100 200 MG Orally Once a day Sep 16, 2018 Dec 15, 2018 Active 1 tablet with food or milk Vitamin B12 ND 14623329652 100 MCG Orally Active as directed Alendronate Sodium ND 04975741534 35 MG Orally once a week Active 1 tablet PredniSONE ND 00071959031 10 MG Orally Once a day Sep 16, 2018 Nov 15, 2018 Active 1 tablet Losartan Potassium-HCTZ [facility] 09658247573 100-12.5 MG Orally Once a day Active 1 tablet Vitamin E ND 84129753171 1000 UNIT Orally Once a day Active 1 capsule Fiber NDC 0 - Orally Active as directed Vitamin C ND 43409592137 100 MG Orally Once a day Active 1 tablet Vitamin D3 [facility] 98977784604 124945 UNIT/GM Active as directed Gabapentin ND 95506512176 600 MG Orally Three times a day Active 1 capsule Tresiba NDC 0 180 units subcutaneous once a day Active 48 units Centrum ND 16853692916 - Orally Active as directed Magnesium ND 44099506950 200 MG Orally Once a day Active 2 tablets with a meal Lovastatin [facility] 52871739386 20 MG Orally once at bedtime Active 1 tablet with the evening meal Carvedilol [facility] 59762897707 6.25 MG Orally twice a day Active 1 tablet Ferrous Sulfate [facility] [address]-81 325 MG Orally Active as directed Vital Signs Date/Time: Sep 16, 2018 BMI 35.35 Index Weight 181 lbs Height 60 in Temperature 98.7 F Cardiac Monitoring Heart Rate 72 /min Blood Pressure Diastolic 68 mm Hg Blood Pressure Systolic 140 mm Hg Results Name Result Date Reference Range Unit Abnormality Flag Tissue, Pathology Report Summary Purpose eClinicalWorks Submission
--- OUTSIDE RECORDS SUMMARY | 2019-05-25 18:44 | XMS REPORT ---
Author Author Sergio Martinez Organization eClinicalWorks Address Unknown Phone Unavailable Care Team Providers Care Internal Consultant Name Role Phone Sergio Martinez CP Unavailable [...]
--- OUTSIDE RECORDS SUMMARY | 2019-05-25 18:44 | XMS REPORT ---
Author Author Sergio Martinez Organization eClinicalWorks Address Unknown Phone Unavailable Care Team Providers Care High Density Talc Coater Operator Name Role Phone Sergio Martinez CP [...] Start Date End Date Status Dosage Benlysta NDC 13020456856 120mg IV [id number] Nov 11, 2018 Active 10mg/kg at 187 lbs (850mg) Benlysta loading dose NDC 31606118378 400mg IV at weeks 0 2 and 4 Nov 11, 2018 Dec 09, 2018 Active 10mg/kg at 187 lbs (850mg) Benlysta loading dose NDC 03634325954 120mg Intravenous at week 2 and 4 Nov 11, 2018 Dec 09, 2018 Active 10mg/kg at 187 lbs (850mg) Benlysta NDC 34758136554 400 MG IV q4 weeks Nov 11, 2018 Active 10mg/kg at 187 lbs (850mg) Results No Known Results Summary Purpose eClinicalWorks Submission
--- OUTSIDE RECORDS SUMMARY | 2019-05-25 18:44 | XMS REPORT ---
Author [facility] Address Unknown Phone Unavailable Care Team Providers Care Er Nurse Name Role Phone REYNA ALONSO Unavailable Unavailable Payers Payer Name Policy Type Policy Number Effective Date Expiration Date Problems This patient has no known problems. Allergies, Adverse Reactions, Alerts Allergy Name Allergy Type Status Severity Reaction(s) Onset Date Inactive Date Treating Clinician Comments Shellfish DA Active U 2019-01-18 00:00:00 iodine DA Active U 2019-01-18 00:00:00 Shellfish DA Active U 2015-02-19 00:00:00 iodine DA Active U 2015-02-19 00:00:00 Medications This patient has no known medications. Results Test Description Test Time Test Comments Text Results Atomic Results Result Comments KIDNEY,BIOPSY 2019-01-24 13:45:00 RUN DATE: 01/24/19 [facility] PAGE 1 RUN TIME: 1345 Specimen Inquiry RUN USER: INTERFACE PATIENT: JOANN SANCHEZ LOC: [place] U #: [id number] AGE/SX: 68/F ROOM: RE01/21/19REG DR: Trevor Wellington MD : 54 BED: DIS: STATUS: [facility] TLOC: SPEC #: [id number] RECD: 01/21/19 STATUS: RUTHIE RE #: [id number] RJ: 01/21/[address] [facility] [address]: Trevor Wellington MD ENTERED: 01/21/19 SP TYPE: BX KIDNEY OTHR DR: Florentin Araujo MD, Ramon A MDORDERED: GROSS COPIES TO: Florentin Araujo MD [address] [facility] [address] [place] [address] Faustino Pisano MD [address] [address] Trevor Wellington MD [address] [address] PROCEDURES: GROSS (01/21/19) TISSUES: KIDNEY, NOS - RENAL BX S/O MD FINAL DIAGNOSIS Right kidney biopsy: CORE BIOPSIES SENT TO [facility] FOR PROCESSING AND EVALUATION DMW/sm D 70059 MACROSCOPIC The specimen consists of three hess core biopsies which are received fresh for STAT intraoperative consultation. The cores measures from 1.0 to 1.5 cm in length by less than 0.1 cm in diameter. There are examined by light microscopy and all contain structures compatible with glomeruli. The tissue is submitted Austen's solution and Salvatore's solution and sent to [facility]. Intraoperati ve consultation: CONTINUED ON NEXT PAGE RUN DATE: 01/24/19 [facility] PAGE 2 RUN TIME: 1345 Specimen Inquiry RUN USER: INTERFACE SPEC #: [id number] PATIENT: DANIELJOANN TANG #[id number] (Continued)------- MACROSCOPIC (Continued) STRUCTURES COMPATIBLE WITH GLOMERULI SEEN BY LITE MICROSCOPY GROSS PERFORMED AT [facility] [address] [place] [address], [place] [address] [phone] Signed SIGNATURE ON FILE Almaz Downs MD 01/24/19 1345 END OF REPORT KIDNEY,BIOPSY 2019-01-24 13:45:00 RUN DATE: 01/27/19 [facility] PAGE 1 RUN TIME: 1459 Specimen Inquiry RUN USER: INTERFACE PATIENT: JOANN SANCHEZ LOC: [facility] U #: [id number] AGE/SX: 68/F ROOM: RE01/21/19[facility] DR: Trevor Wellington MD : 54 BED: DIS: STATUS: [facility] TLOC: SPEC #: [id number] RECD: 01/21/19 STATUS: RUTHIE DURANT #: [id number] RJ: 01/21/[address] [facility] [address]: Trevor Wellington MD ENTERED: 01/21/19 SP TYPE: BX KIDNEY OTHR DR: Florentin Araujo MD, Ramon A MDORDERED: GROSS COPIES TO: Florentin Araujo MD [address] [facility] [address] [place] [address] Faustino Pisano MD [address] [place] [address] Trevor Wellington MD [address] [place], [place] [address] PROCEDURES: GROSS (01/21/19) TISSUES: KIDNEY, NOS - RENAL BX S/O MD ADDENDUM FINDINGS Addendum #1 Entered: 01/27/19471 A report is received from [facility] ([id number]) and the diagnosis and comment are as follows: DIAGNOSIS: Kidney, right, needle biopsies: DIFFUSE AND FOCALLY NODULAR DIABETIC GLOMERULOSCLEROSIS, CLASS IV NO EVIDENCE OF IMMUNE COMPLEX GLOMERULONEPHRITIS ARTERIAL AND ARTERIOLAR SCLEROSIS WITH HYALINE SCLEROSIS OF AFFERENT AND EFFERENT ARTERIOLES APPROXIMATELY 69% GLOBAL GLOMERULOSCLEROSIS (40/58 GLOMERULI IN ALL SPECIMENS) AND 50% INTERSTITIAL FIBROSIS WITH TUBULAR ATROPHY (IFTA) SEE COMMENT CONTINUED ON NEXT PAGE RUN DATE: 01/27/19 [facility] PAGE 2 RUN TIME: 1459 Specimen Inquiry RUN USER: INTERFACE SPEC #: [id number] PATIENT: JOANN SANCHEZ #[id number] (Continued) ADDENDUM FINDINGS (Continued) COMMENT: The biopsy specimens show chronic kidney disease due to diabetic nephropathy and hypertensive nephrosclerosis. The presence of hyaline sclerosis of both afferent and efferent arterioles strongly supports the diagnosis of diabetic glomerulosclerosis. There is no evidence of immune complex glomerulonephritis typical of lupus nephritis. Addendum Signed SIGNATURE ON FILE Almaz Downs MD 01/27/19 1459 FINAL DIAGNOSIS Right kidney biopsy: CORE BIOPSIES SENT TO [facility] FOR PROCESSING AND EVALUATION W/ D 11254 MACROSCOPIC The specimen consists of three hess core biopsies which are received fresh for STAT intraoperative consultation. The cores measures from 1.0 to 1.5 cm in length by less than 0.1 cm in diameter. There are examined by light microscopy and all contain structures compatible with glomeruli. The tissue is submitted Austen's solution and Salvatore's solution and sent to [facility]. Intraoperative consultation: STRUCTURES COMPATIBLE WITH GLOMERULI SEEN BY LITE MICROSCOPY GROSS PERFORMED AT [facility] [address] [place] [address] [phone] Signed SIGNATURE ON FILE Almaz Downs MD 01/24/19 1345 END OF REPORT - US RETROPERITONEAL COM 2019-01-21 14:42:00 Name: JOANN SANCHEZ [facility] : 1950 Age/S: 68 / F [address] [facility] Unit #: [id number] Loc: [place] [address] Phys: Trevor Wellington MD Acct: [id number] Dis Date: Status: [facility] PHONE #: [phone] Exam Date: 01/21/2019929 FAX #: [phone] Reason: KIDNEY BX EXAMS: CPT CODE: [id number] US RETROPERITONEAL COM 87950 EXAM: Ultrasound of the retroperitoneum and ultrasound- guided renal biopsy with conscious sedation; INFORMATION: Patient with history of lupus, diabetes, hypertension and chronic renal failure; TECHNIQUE AND FINDINGS: Conscious sedation start time: 0920 hours; Completion time: 0926 hours; Under physician supervision 1 mg of Versed and 25 mcg of fentanyl were administered intravenously for moderate sedation. The patient's heart rate, blood pres sure and pulse oximetry were continuously monitored by a trained registered nurse. Physician kbrg-rb-pkkl sedation time was 6 minutes. Benefits and risks of procedure including risks of hemorrhage and renal injury, were explained to the patient and informed consent was obtained. She was placed prone on the procedure table and ultrasound of the kidneys was performed. The kidneys were of normal size and shape.; No obvious parenchymal abnormalities and no evidence of hydronephrosis or stones. Several small cysts were seen in the left kidney; the largest measuring 1.6 cm. The right kidney measures 8.8 x 4.4 x 4.2 cm, with a parenchymal thickness of 1.2 cm. The left kidney measures 9.2 x 4.9 x 4.4 cm, with a parenchymal thickness of 1.6 cm. Unremarkable urinary bladder. The lower pole of the right kidney was targeted for biopsy. Conscious sedation was initiated as described above. The patient's skin in the right flank region was prepped and draped in the usual sterile fashion. Xylocaine was administered and using real-time sonographic guidance 3 passes were made into the lower pole of the right kidney using an 18-gauge core biopsy needle. Tissue cores were evaluated for adequacy by Dr. Downs, pathology service. Biopsy scans showed no evidence of renal or perinephric hemorrhage. The patient tolerated the procedure well and there were no apparent complications. IMPRESSION: 1. Ultrasound showed normal-sized kidneys without evidence of PAGE 1 Signed Report (CONTINUED) Name: JOANN SANCHEZ [facility] : 1950 Age/S: 68 / F [address] [facility] Unit #: [id number] Loc: [place] [address] Phys: Trevor Wellington MD Acct: [id number] Dis Date: Status: [facility] PHONE #: [phone] Exam Date: 01/21/2019929 FAX #: [phone] Reason: KIDNEY BX EXAMS: CPT CODE: [id number] [facility] [address] <Continued> hydronephrosis or stones and without obvious parenchymal abnormalities. 2. Several small left renal cysts. 3. Unremarkable urinary bladder. 4. Successful ultrasound-guided renal biopsy, targeting the lower pole of the right kidney. at 1442 Reported and signed by: Trevor Wellington M.D. CC: Faustino Pisano MD; Trevor Wellington MD Technologist: LORI CESPEDES ARDMS Trnscb Date/Time: 01/21/2019 (0604) [email or web address] PAGE 2 Signed Report - USG NDL PLACEMENT (Bxg/Asp) 2019-01-21 14:42:00 Name: JOANN SANCHEZ [facility] : 1950 Age/S: 68 / F [address] [facility] Unit #: [id number] Loc: [place] [address] Phys: Trevor Wellington MD Acct: [id number] Dis Date: Status: REG SDC PHONE #: [phone] Exam Date: 01/21/2019929 FAX #: [phone] Reason: KIDNEY BX. EXAMS: CPT CODE: [id number] USG NDL PLACEMENT (Bxg/Asp) 50727 EXAM: Ultrasound of the retroperitoneum and ultrasound-guided renal biopsy with conscious sedation; INFORMATION: Patient with history of lupus, diabetes, hypertension and chronic renal failure; TECHNIQUE AND FINDINGS: Conscious sedation start time: 0920 hours; Completion time: 0926 hours; Under physician supervision 1 mg of Versed and 25 mcg of fentanyl were administered intravenously for moderate sedation. The patient's heart rate, blood pressure and pulse oximetry were continuously monitored by a trained registered nurse. Physician sgih-fu-cwmw sedation time was 6 minutes. Benefits and risks of procedure including risks of hemorrhage and renal injury, were explained to the patient and informed consent was obtained. She was placed prone on the procedure table and ultrasound of the kidneys was performed. The kidneys were of normal size and shape.; No obvious parenchymal abnormalities and no evidence of hydronephrosis or stones. Several small cysts were seen in the left kidney; the largest measuring 1.6 cm. The right kidney measures 8.8 x 4.4 x 4.2 cm, with a parenchymal thickness of 1.2 cm. The left kidney measures 9.2 x 4.9 x 4.4 cm, with a parenchymal thickness of 1.6 cm. Unremarkable urinary bladder. The lower pole of the right kidney was targeted for biopsy. Conscious sedation was initiated as described above. The patient's skin in the right flank region was prepped and draped in the usual sterile fashion. Xylocaine was administered and using real-time sonographic guidance 3 passes were made into the lower pole of the right kidney using an 18-gauge core biopsy needle. Tissue cores were evaluated for adequacy by Dr. Downs, pathology service. Biopsy scans showed no evidence of renal or perinephric hemorrhage. The patient tolerated the procedure well and there were no apparent complications. IMPRESSION: 1. Ultrasound showed normal- sized kidneys without evidence of PAGE 1 Signed Report (CONTINUED) Name: JOANN SANCHEZ [facility] : 1950 Age/S: 68 / F [address] [facility] Unit #: [id number] Loc: [place] [address] Phys: Trevor Wellington MD Acct: [id number] Dis Date: Status: REG [facility] PHONE #: [phone] Exam Date: 01/21/2019929 FAX #: [phone] Reason: KIDNEY BX. EXAMS: CPT CODE: [id number] USG NDL PLACEMENT (Bxg/Asp) 31456 <Continued> hydronephrosis or stones and without obvious parenchymal abnormalities. 2. Several small left renal cysts. 3. Unremarkable urinary bladder. 4. Successful ultrasound-guided renal biopsy, targeting the lower pole of the right kidney. at 1442 Reported and signed by: Trevor Wellington M.D. CC: Faustino Pisano MD; Trevor Wellington MD Technologist: LORI CESPEDES COVIKTORIYA Trnpab Date/Time: 01/21/2019 (1442) OlesyaGRW Orig Print D/T: S: 01/21/2019 (4095) Probe: PAGE 2 Signed Report GLUBED 2019-01-21 07:44:00 GLUBED (test code=GLUBED) 91 mg/dL 74-106 Performed by certified matcher operator at [facility] PROTHROMBIN [id number] 15:38:00* Test Item Value Reference Range Comments PROTHROMBIN TIME PATIENT (test code=PTP) 13.6 seconds 9.0-14.0 INTERNATIONAL NORMAL RATIO (test code=INR) 1.1 0.8-1.2 The therapeutic range for oral anticoagulant therapy formost indications is an international normalized ratio (INR)of between 2.0 and 3.0. The recommended therapeutic INRrange for various clinical situations is listed below: Clinical Situation INR range Pulmonary e mbolism treatment (2.0-3.0)Venous thrombosis treatmentVenous thrombosis prophylaxis (high risk surgery)Prevention of systemic embolism from: Acute myocardial infarction Valvular heart disease Atrial fibrillation Mechanical prosthetic heart valves (2.5-3.5) THROMBOPLASTIN TIME [id number] 15:38:00* Test Item Value Reference Range Comments THROMBOPLASTIN TIME PARTIAL (test code=PTT) 34.2 seconds 25.0-36.5 PLATELET [id number] 15:29:00* Test Item Value Reference Range Comments PLATELET COUNT (test code=PLT) 242 K/mm3 150-450 Stress Test - Treadmill [id number] 11:01:00 [place] [address] Patient Name : JOANN SANCHEZ MR #: [id number] : 1950 Age/Sex: 68/F Adm Physician : REYNA ALONSO MD Admit Date : Location : [place] Room/Bed : REPORT: Cardiology Report DATE OF STUDY: December 22, 2018 LEXISCAN NUCLEAR 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 Resting images we re obtained in the horizontal long axis and vertical long axis and short axis . The patient was then hooked up to the EKG machine. Lexiscan was infused o ruslan 15 seconds. About 30 seconds after Lexiscan infusion, the patient was gi teena 33 millicuries of Myoview. Stress images were obtained 30 minutes after completion of Lexiscan infusion. Stress images were obtained in the horizont al long axis and vertical long axis and short axis. RESULTS 1. The restin g EKG demonstrated normal sinus rhythm with nonspecific ST and T wave changes . 2. There were no EKG changes and no symptoms during Lexiscan infusion. 3. The patient had normal perfusion to all segments of the myocardium in both st ress and rest. 4. There were normal left ventricular size and function with an ejection fraction of 50%. CONCLUSION: The patient has normal perfusion to all segments of the myocardium in both stress and rest. There is no evid ence of ischemia. This is a normal Lexiscan nuclear stress test. Job#: [id number] S ignature Date Dictated By: REYNA ALONSO MD Transcribed By: SONG on 12/24/18 <Electronically signed by REYNA ALONSO MD><<Signature on File>> 01/02/19 1008 COPY TO:
[2019-05-25] MEDS ORDERED: ACETAMINOPHEN 325 MG TAB PO ONE ×2 (19:50→20:00)
--- NOTE | 2019-05-25 20:52 | Diagnostic Imaging Report ---
EXAMINATION: CHEST 2 VIEWS INDICATION: Sepsis. COMPARISON: None FINDINGS: TUBES and LINES: None. LUNGS: Bilateral low lung volumes, right greater than left. Mild prominence of the pulmonary vasculature may be related to suboptimal inspiration. PLEURA: No pleural effusion or pneumothorax. HEART AND MEDIASTINUM: Cardiac size is mildly enlarged. BONES AND SOFT TISSUES: No acute osseous lesion. Soft tissues are unremarkable. UPPER ABDOMEN: No free air under the diaphragm. IMPRESSION: Mild pulmonary venous congestion versus portable technique and suboptimal inflation. Recommend chest PA and lateral views when patient's condition permits. Signed by: Dr. Ana Barnes M.D. on 05/25/2019 8:49 PM
[2019-05-25 22:17] LABS: BILIRUBIN,URINE NEGATIVE (NEGATIVE); CLARITY,URINE CLEAR (CLEAR); COLOR,URINE YELLOW (YELLOW); KETONES,URINE NEGATIVE (NEGATIVE); LEUKOCYTE ESTERASE ,URINE MODERATE (NEGATIVE); NITRITE,URINE POSITIVE (NEGATIVE); PROTEIN,URINE DIPSTICK 2+ (NEGATIVE); URINE UROBILINOGEN 0.2 mg/dL (0.2 - 1)
[2019-05-25 22:31] LABS: BACTERIA,URINE MANY /HPF; EPITHELIAL CELLS,URINE MANY /LPF; RBC,URINE 21-50 /HPF (0-5); WBC,URINE (MAN) >50 /HPF (0-5)
[2019-05-25 22:52] LABS: BASOPHILS % 0.2 % (0.0-1.0); HEMATOCRIT 23.5 % (34.2-44.1); HEMOGLOBIN 7.3 g/dL (12.0-16.0); LYMPHOCYTES # (AUTO) 0.2 (1.0-3.2); LYMPHOCYTES % 3.1 % (18.0-39.1); MEAN CORPUSCULAR HEMOGLOBIN 28.5 pg (28-32); MEAN CORPUSCULAR HGB CONC 31.1 g/dL (31-35); MEAN CORPUSCULAR VOLUME 91.8 fL (81-99); MONOCYTES # (AUTO) 0.1 (0.2-0.8); MONOCYTES % 1.1 % (4.4-11.3); NEUTROPHILS # (AUTO) 4.5 (2.1-6.9); NEUTROPHILS % 84.1 % (38.7-80.0); PLATELET COUNT 193 x10e3/uL (140-360); RED BLOOD COUNT 2.56 x10e6/uL (3.6-5.1); RED CELL DISTRIBUTION WIDTH 17.7 % (11.7-14.4)
[2019-05-25 23:14] LABS: ALBUMIN 3.1 g/dL (3.5-5.0); ALBUMIN/GLOBULIN RATIO 0.9 (0.8-2.0); ANION GAP 12.2 mmol/L (8-16); CALCIUM 9.8 mg/dL (8.4-10.2); POTASSIUM 4.2 mmol/L (3.5-5.1)
--- NOTE | 2019-05-26 00:01 | NUR ---
REPORT GIVEN TO MEME SMITH
--- NOTE | 2019-05-26 00:02 | NUR ---
RECIEVED REPORT FROM MEME SÁNCHEZ.
[2019-05-26] MEDS ORDERED: ONDANSETRON HCL INJ 2MG/ML 2ML 2 MG/ML VIAL IV STA (00:12)
[2019-05-26] MEDS ORDERED: MORPHINE SULFATE INJ 4 MG/ML INJ 1ML IV PRN (00:15)
[2019-05-26] MEDS ORDERED: CEFTRIAXONE SOD 1 GM/NS 50 ML 50 ML IV ONE (01:15)
--- NOTE | 2019-05-26 01:37 | Diagnostic Imaging Report ---
EXAM: CT Abdomen and Pelvis WITHOUT contrast INDICATION: abd pain COMPARISON: None. TECHNIQUE: Abdomen and pelvis were scanned utilizing a multidetector helical scanner from the lung base to the pubic symphysis without administration of IV contrast. Absence of intravenous contrast decreases sensitivity for detection of focal lesions and vascular pathology. Coronal and sagittal reformations were obtained. Routine protocol was performed. IV CONTRAST: None ORAL CONTRAST: Readicat COMPLICATIONS: None RADIATION DOSE: Total DLP: 743 mGy*cm Estimated effective dose: (DLP x 0.015 x size factor) mSv CTDIvol has been reviewed. It is below the limits set by the Radiation Protocol Committee (RPC). Dose modulation, iterative reconstruction, and/or weight based adjustment of the mA/kV was utilized to reduce the radiation dose to as low as reasonably achievable. FINDINGS: LINES and TUBES: None. LOWER THORAX: Scarring in the lung bases. HEPATOBILIARY: No focal hepatic lesions. No biliary ductal dilation. GALLBLADDER: No radio-opaque stones or sludge. No wall thickening. SPLEEN: No splenomegaly. PANCREAS: No focal masses or ductal dilatation. ADRENALS: No adrenal nodules . Small benign left adrenal adenoma. KIDNEYS/URETERS: No hydronephrosis. No cystic or solid mass lesions. No stones. Mild bilateral perinephric fat stranding, consistent with senescent changes. GI TRACT: No abnormal distention, wall thickening, or evidence of bowel obstruction. Colonic diverticuli. Mild perisigmoid fat stranding Appendix is normal. PELVIC ORGANS/BLADDER: Hysterectomy. No adnexal masses.. LYMPH NODES: Mildly enlarged bilateral lower retroperitoneal lymph nodes, likely reactive. VESSELS: There is mild atherosclerotic disease in the aorta and major arterial branches. PERITONEUM / RETROPERITONEUM: No free air or fluid. BONES: There are degenerative changes in the lumbar spine. SOFT TISSUES: Fat-containing right inguinal hernia. IMPRESSION: Mild sigmoid diverticulitis Signed by: Pato Howell DO on 05/26/2019 1:34 AM
[2019-05-26] MEDS ORDERED: ONDANSETRON HCL INJ 2MG/ML 2ML 2 MG/ML VIAL ONE ×2 (03:55→07:26)
[2019-05-26] MEDS ORDERED: CIPROFLOXACIN 400 MG/D5W 200ML 200 ML IV STA (04:24)
[2019-05-26] MEDS ORDERED: METRONIDAZOLE 500MG/NS 100ML 100 ML IV STA (04:24)
[2019-05-26] MEDS ORDERED: FLAGYL500 MG PO (05:31)
[2019-05-26] MEDS ORDERED: CIPRO500 MG PO (05:31)
[2019-05-26] MEDS ORDERED: CIPROFLOXACIN 400 MG/D5W 200ML 200 ML IV SCH (06:30)
[2019-05-26] MEDS ORDERED: METRONIDAZOLE 500MG/NS 100ML 100 ML IV SCH (06:30)
[2019-05-26 06:53] LABS: BASOPHILS % 0.2 % (0.0-1.0); EOSINOPHILS % 0.4 % (0.0-6.0); HEMATOCRIT 26.2 % (34.2-44.1); LYMPHOCYTES # (AUTO) 0.5 (1.0-3.2); LYMPHOCYTES % 6.4 % (18.0-39.1); MEAN CORPUSCULAR HEMOGLOBIN 28.5 pg (28-32); MEAN CORPUSCULAR HGB CONC 30.5 g/dL (31-35); MEAN CORPUSCULAR VOLUME 93.2 fL (81-99); MONOCYTES # (AUTO) 0.1 (0.2-0.8); MONOCYTES % 0.6 % (4.4-11.3); NEUTROPHILS # (AUTO) 7.4 (2.1-6.9); NEUTROPHILS % 90.2 % (38.7-80.0); PLATELET COUNT 216 x10e3/uL (140-360); RED BLOOD COUNT 2.81 x10e6/uL (3.6-5.1); RED CELL DISTRIBUTION WIDTH 17.7 % (11.7-14.4)
--- NOTE | 2019-05-26 07:26 | Diagnostic Imaging Report ---
EXAMINATION: PA and lateral views of the chest. COMPARISON: 05/25/2019 CLINICAL HISTORY: Shortness of breath DISCUSSION: Low lung volumes. No focal consolidation, pleural effusion, or pneumothorax. Persistent enlargement of the cardiac silhouette with prominence of the central pulmonary vasculature. No acute osseous abnormality. Surgical anchors project over the left glenoid. IMPRESSION: Low lung volumes with pulmonary venous congestion. Signed by: Dr. Stanley Wilkins M.D. on 05/26/2019 7:23 AM
[2019-05-26] MEDS ORDERED: ONDANSETRON HCL INJ 2MG/ML 2ML 2 MG/ML VIAL IV PRN (07:30)
--- OUTSIDE RECORDS SUMMARY | 2019-05-26 07:47 | XMS REPORT | Clinical Summary ---
Author Author [facility] [facility] Address Unknown Phone Unavailable Care Team Providers Care Bank Courier Name Role Phone Faustino Louie MD PCP [...] INFLUENZA VACCINE 06/16/2019 Results Not on fileafter 05/25/2018 Insurance Type Payer Benefit Subscriber ID Effective Phone Address Plan / Dates Group HMO [employer] TEX[employer]US xxxxxxxxx 2018- [facility] Present Advance Directives Patient has advance care planning documents on file. For more information, darwin torres contact: Raj Cortés [address] [place] [address]
--- OUTSIDE RECORDS SUMMARY | 2019-05-26 07:47 | XMS REPORT | Continuity of Care Document ---
Author Author [facility] Organization [employer] Address Unknown Phone Unavailable Care Team Providers Care Parking Meter Installer Name Role Phone [employer] Information [place] [employer] Unavailable Unavailable Problems Problem Status Onset Date Classification Date Reported Comments Source Lupus Active Problem 05/19/2019 Venkatesh Martinez Raynauds disease Active Problem 05/19/2019 Venkatesh Martinez Granuloma annulare Active Problem 05/19/2019 Venkatesh Martinez Joint pain Active Problem 05/19/2019 Venkatesh Martinez DELL positive Active Problem 05/19/2019 Venktaesh Martinez Skin rash Active Problem 05/19/2019 Venkatesh [...] 187 lbs (850mg) IV Active 120mg IV [id number] Tony 03/30/2019 Venkatesh Martinez Ciprofloxacin HCl 1 tablet Orally Active 500 MG Orally every 12 hrs [place] 02/07/2019 Venkateshpurvi Martinez Ciprofloxacin 1 tablet Orally [...] 187 lbs (850mg) IV Active 120mg IV [id number] Tony 11/11/2018 Venkatesh Martinez Benlysta 10mg/kg at 187 lbs (850mg) IV Active 400 MG IV q4 weeks 11/11/2018 Venkatesh Martinez Benlysta loading dose 10mg/kg at 187 lbs (850mg) IV Active 400mg IV at weeks 0 2 and 4 [place] 11/11/2018 Venkatesh Martinez Benlysta loading dose 10mg/kg at 187 lbs (850mg) Intravenous Active 120mg Intravenous at week 2 and 4 [place] 11/11/2018 Venkatesh Martinez Nitrofurantoin-Macrobid 100 mg 7d [...] UNIT Orally Once a day [facility] Venkatesh Martinez Fiber as directed Orally Active - Orally Tony Venkatesh Martinez Carvedilol 1 tablet Orally Active 6.25 MG Orally twice a day [facility] Venkatesh Martinez Lovastatin 1 tablet with the evening meal Orally Active 20 MG Orally once at bedtime [place] Venkatesh Martinez Losartan Potassium-HCTZ 1 tablet Orally Active 100-12.5 MG Orally Once a day [place] Venkatesh Martinez Furosemide 1 tablet Orally Active 20 MG Orally Once a day [facility] Venkatesh Martinez Centrum as directed Orally Active - Orally Tony Venkatesh Martinez Vitamin D3 as directed NA Active 839479 UNIT/GM Tony Venkatesh Martinez Alendronate Sodium 1 tablet Orally Active 35 MG Orally once a week Tony Venkatesh Martinez Vitamin B12 as directed Orally Active 100 MCG Orally [facility] Venkatesh Martinez Vitamin C 1 tablet Orally Active 100 MG Orally Once a day [facility] Venkatesh Martinez Lisinopril 1 tablet Orally Active 5 MG Orally Once a day [facility] Venkatesh Martinez Plaquenil 1 tablet with food or milk Orally Active 200 MG Orally Once a day [facility] Venkatesh Martinez Allergies, Adverse Reactions, Alerts Substance [...]
[2019-05-26] MEDS ORDERED: ACETAMINOPHEN 650 MG SUPP PR ONE (08:00)
--- NOTE | 2019-05-26 08:34 | NUR ---
REPORT FROM MEME GARCIA; PATIENT RESTING IN BED. HAD AN EPISODE OF VOMITING AND ALSO NOTED TO HAVE FAVER, 100.7. ORDERS PLACED FOR MEDICATING. WILL CONTINUE TO MONITOR
[2019-05-26 12:36] LABS: EOSINOPHILS % (MANUAL) 1 % (0-7); HYPOCHROMASIA SLIGHT; LYMPHOCYTES % (MANUAL) 6 % (19-48); MONOCYTES % (MANUAL) 3 % (3.4-9.0); NEUTROPHILS % (MANUAL) 87 % (40-74); PLATELET ESTIMATE ADEQUATE; PLATELET MORPHOLOGY COMMENT NORMAL; RBC MORPHOLOGY COMMENT NORMAL
[2019-05-26] MEDS: METRONIDAZOLE 500MG/NS 100ML 100 ML IV SCH ×2 (14:56→22:08)
[2019-05-26 15:46] VITALS: BP 109/55
[2019-05-26 16:08] VITALS: BP 109/55
[2019-05-26 16:21] VITALS: BP 109/55
[2019-05-26] MEDS ORDERED: DEXTROSE 50% SYRINGE 50 ML IV PRN (19:45)
[2019-05-26 20:00] VITALS: BP 138/64
[2019-05-26 20:30] LABS: BASOPHILS % 0.2 % (0.0-1.0); EOSINOPHILS % 0.2 % (0.0-6.0); LYMPHOCYTES # (AUTO) 0.4 (1.0-3.2); LYMPHOCYTES % 4.3 % (18.0-39.1); MEAN CORPUSCULAR HEMOGLOBIN 28.6 pg (28-32); MEAN CORPUSCULAR HGB CONC 31.5 g/dL (31-35); MEAN CORPUSCULAR VOLUME 90.9 fL (81-99); MONOCYTES # (AUTO) 0.3 (0.2-0.8); MONOCYTES % 3.2 % (4.4-11.3); NEUTROPHILS # (AUTO) 8.8 (2.1-6.9); PLATELET COUNT 110 x10e3/uL (140-360); RED BLOOD COUNT 2.41 x10e6/uL (3.6-5.1)
[2019-05-26 20:34] LABS: HEMOGLOBIN 6.9 g/dL (12.0-16.0)
[2019-05-26 20:35] LABS: HEMATOCRIT 21.9 % (34.2-44.1)
--- NOTE | 2019-05-26 20:45 | NUR ---
received low hemoglobin result from laboratory. patient's hemoglobin is 6.9. MD notified. received new order to type and screen, and transfuse 2 units of blood.
[2019-05-26 20:50] LABS: ANION GAP 12.2 mmol/L (8-16); CREATININE, SERUM 2.53 mg/dL (0.57-1.11); POTASSIUM 4.2 mmol/L (3.5-5.1)
[2019-05-26] MEDS ORDERED: SODIUM CHLORIDE 0.9% 250ML 250 ML IV ONE (21:00)
--- NOTE | 2019-05-26 21:00 | NUR ---
patient has signed consent form to receive blood.
[2019-05-26] MEDS: CIPROFLOXACIN 400 MG/D5W 200ML 200 ML IV SCH (22:33)
[2019-05-26] MEDS: D5NS/KCL 20MEQ 1,000 ML IV SCH (22:33)
[2019-05-27] VITALS (7 sets, daily range): BP systolic 121–157; BP diastolic 59–67
--- NOTE | 2019-05-27 | NUR ---
first unit of blood is transfusing. no adverse reactions noted. will continue to monitor transfusion process.
--- NOTE | 2019-05-27 02:40 | History and Physical ---
ADDENDUM: IMAGING DATA: Shows CT abdomen and pelvis consistent with acute diverticulitis, mild sigmoid diverticulitis. Chest x-ray shows some mild pulmonary congestion. PHYSICAL EXAMINATION: GENERAL: Not in acute distress, alert and oriented x3, cooperative on examination. HEENT: Head is normocephalic and atraumatic. Eyes; pupils are equal, round, and reactive to light bilaterally. Extraocular movements intact bilaterally. Throat, no evidence of erythema or exudates in the posterior pharynx. Has poor dentition. NECK: Supple. Good range of motion. PULMONARY: Clear to auscultation bilaterally. No wheezing, no rales, no rhonchi, no crackles appreciated. CARDIOVASCULAR: Positive S1 and S2. No murmurs, rubs, or gallops appreciated. ABDOMEN: Soft and nondistended to palpation. Tender to palpation in the left lower quadrant. Bowel sounds present. MUSCULOSKELETAL: Strength was 5/5 throughout. No evidence of any muscles deficits on examination. No weakness appreciated. NEUROLOGICAL: Cranial nerves II through XII grossly intact. No evidence of any neurological deficits on exam. SKIN: Intact. Warm to touch. Good cap refill. PSYCHIATRIC: Normal affect and mood. EXTREMITIES: No edema. Good range of motion throughout. IMPRESSION: 1. Acute sigmoid diverticulitis-GI consultation, diabetic diet, IV fluids, IV antibiotics, stool cultures, Clostridium difficile toxin ordered. CT imaging abdomen and pelvis noted. 2. Nausea, vomiting, dehydration-antinausea medication, IV fluids, pain control. 3. Hypertension-resume same home medications, p.r.n. hydralazine. 4. Type 2 diabetes-insulin sliding scale, Accu-Cheks. 5. Fluid, electrolytes, and nutrition. IV fluids, diabetic diet. 6. PT/OT eval. 7. Lovenox for deep venous thrombosis prophylaxis. MD AKIKO Dotson/CHASITYL /[id number]
[2019-05-27] MEDS ORDERED: SODIUM CHLORIDE 0.9% 250ML 250 ML ONE (03:25)
--- NOTE | 2019-05-27 04:20 | History and Physical ---
CHIEF COMPLAINT: Abdominal pain, nausea, vomiting, diarrhea. HISTORY OF PRESENT ILLNESS: This is a 68-year-old female, morbidly obese with past medical history of hypertension and hyperlipidemia, who came into the ED with complaints of a 5-day history of nausea, vomiting, and decreased oral intake. The patient denies any chest pain during my evaluation. Reports having some left lower quadrant abdominal pain. CT scan was consistent with sigmoid diverticulitis. She was having diarrhea again this morning. No blood in the stool. No hematemesis or hemoptysis. She denies any food poisoning. Denies any recent travel. The patient is seen and evaluated at bedside on the medical floor. Currently, she is doing well, looks clinically dehydrated. Her vital signs were stable when I evaluated her. REVIEW OF SYSTEMS: Pertinent positives: Abdominal pain, nausea, vomiting, dehydration, decreased oral intake. Pertinent negatives: Denies any chest pain, palpitation, dysuria, hematuria, frequency, urgency, lightheadedness, dizziness, cough, congestion, or any other complaints. The rest of 14-point review of systems are reviewed with the patient and are negative. ALLERGIES: TO IODINE, SHELLFISH. HOME MEDICATIONS: Clonidine 0.1 mg daily, losartan 100 mg daily, subcu daily, amlodipine 10 mg daily, Coreg 12.5 mg daily, gabapentin 300 mg p.o. b.i.d., omeprazole 40 mg daily. PAST MEDICAL HISTORY: Acid reflux, hypertension, morbidly obese, peripheral neuropathy. PAST SURGICAL HISTORY: Reports none. FAMILY HISTORY: Hypertension and diabetes. SOCIAL HISTORY: No drugs. No alcohol. Does not smoke. Good social support. PHYSICAL EXAMINATION: VITAL SIGNS: Temperature is 97, pulse is 74, respiratory rate is 18, blood pressure is 109/55, pulse ox 93% on room air. LABORATORY DATA: White blood cell count 8.2, hemoglobin 8, hematocrit 26, platelets of 216. Chemistry; sodium is 136, potassium is 4.2, chloride is 106, bicarbonate is 22, anion gap is 12, BUN is 39, creatinine is 2, glucose is 100. [id number] glucose was 64. Lactic acid was bilirubin is 0.3, AST is 36, ALT 17, BNP 1879, albumin 3.1. Urinalysis consistent with urinary tract infection. Microbiology; urine cultures were consistent with UTI. Blood cultures x2 are pending. IMAGING STUDIES: CT abdomen and pelvis DICTATION ENDS HERE MD AKIKO Dotson/MODDiana /[id number]
--- NOTE | 2019-05-27 06:21 | NUR ---
SECOND UNIT OF BLOOD IS DONE TRANSFUSING. NO ADVERSE REACTION NOTED.
--- NOTE | 2019-05-27 06:25 | NUR ---
ATTENDING MD NOTIFIED OF POSITIVE GRAM STAIN CULTURE. RECEIVED NEW ORDER TO CONSULT DR RINCON. ANSWERING SERVICE FOR DR RINCON NOTIFIED. AWAITING CALL BACK FROM DOCTOR.
[2019-05-27] MEDS: METRONIDAZOLE 500MG/NS 100ML 100 ML IV SCH ×3 (06:27→21:21)
--- NOTE | 2019-05-27 07:12 | NUR ---
REPORT GIVEN TO DAY NURSE. PATIENT IS RESTING COMFORTABLY IN BED. BED IS IN LOWEST POSITION AND CALL LIGHT IS WITHIN REACH.
[2019-05-27] MEDS ORDERED: CARVEDILOL 3.125 MG TAB PO SCH (09:00)
[2019-05-27] MEDS: D5NS/KCL 20MEQ 1,000 ML IV SCH ×2 (09:31→22:19)
[2019-05-27] MEDS: CARVEDILOL 12.5 MG TAB PO SCH ×2 (09:31→16:39)
[2019-05-27] MEDS: GABAPENTIN 300 MG CAP PO SCH ×2 (09:32→16:39)
[2019-05-27] MEDS: AMLODIPINE BESYLATE 10 MG TAB PO SCH (09:32)
[2019-05-27] MEDS: CIPROFLOXACIN 400 MG/D5W 200ML 200 ML IV SCH ×2 (09:33→20:00)
[2019-05-27] MEDS: PANTOPRAZOLE SOD 40 MG TABEC PO SCH (09:33)
[2019-05-27 10:11] LABS: BASOPHILS % 0.3 % (0.0-1.0); EOSINOPHILS # (AUTO) 0.2 (0.0-0.4); EOSINOPHILS % 2.4 % (0.0-6.0); HEMATOCRIT 28.7 % (34.2-44.1); HEMOGLOBIN 9.2 g/dL (12.0-16.0); LYMPHOCYTES # (AUTO) 0.4 (1.0-3.2); LYMPHOCYTES % 4.1 % (18.0-39.1); MEAN CORPUSCULAR HEMOGLOBIN 28.6 pg (28-32); MEAN CORPUSCULAR HGB CONC 32.1 g/dL (31-35); MEAN CORPUSCULAR VOLUME 89.1 fL (81-99); MONOCYTES # (AUTO) 0.4 (0.2-0.8); MONOCYTES % 4.4 % (4.4-11.3); NEUTROPHILS # (AUTO) 8.4 (2.1-6.9); NEUTROPHILS % 87.7 % (38.7-80.0); PLATELET COUNT 145 x10e3/uL (140-360); RED BLOOD COUNT 3.22 x10e6/uL (3.6-5.1); RED CELL DISTRIBUTION WIDTH 16.6 % (11.7-14.4)
[2019-05-27 11:27] LABS: ALBUMIN 2.7 g/dL (3.5-5.0); ALBUMIN/GLOBULIN RATIO 0.8 (0.8-2.0); ANION GAP 13.8 mmol/L (8-16); CALCIUM 9.2 mg/dL (8.4-10.2); CREATININE, SERUM 2.3 mg/dL (0.57-1.11); POTASSIUM 3.8 mmol/L (3.5-5.1)
[2019-05-27] MEDS ORDERED: ONDANSETRON HCL 4 MG ORAL DISINTEGRATING TAB PO PRN (11:30)
[2019-05-27 12:11] LABS: FERRITIN 550.94 ng/mL (4.63-204.00)
[2019-05-27 12:15] LABS: FOLATE 13.3 ng/mL (7.0-15.4)
[2019-05-27] MEDS: ACETAMINOPHEN 325 MG TAB PO PRN (12:35)
[2019-05-27 12:38] LABS: BAND NEUTROPHILS % (MANUAL) 12 %; LYMPHOCYTES % (MANUAL) 5 % (19-48); MONOCYTES % (MANUAL) 3 % (3.4-9.0); NEUTROPHILS % (MANUAL) 80 % (40-74); PLATELET ESTIMATE ADEQUATE; PLATELET MORPHOLOGY COMMENT NORMAL; RBC MORPHOLOGY COMMENT NORMAL
--- NOTE | 2019-05-27 13:40 | NUR ---
PT CHANGED TO INPT STATUS IMM EXPLAINED TO PT , SIGNED BY PT AND PLACED ON CHART COPY TO PT IN CARE TRANSITIONS FOLDER
--- NOTE | 2019-05-27 15:30 | Consultation ---
DATE OF CONSULTATION: REASON FOR CONSULTATION: Abdominal pain, fever, chills, diverticulitis. Thank you so much for seeing this patient. HISTORY OF PRESENT ILLNESS: She is a very pleasant 68-year-old Welsh female with history of obesity. The patient comes in with abdominal pain, diffuse and for a few days not feeling well. The patient does have diabetes mellitus, hypertension, obesity. Apparently, she had a colonoscopy done three years ago and everything was okay according to her. She is coming with the above complaint. The patient is being admitted. PAST MEDICAL HISTORY: Hypertension, obesity, diabetes mellitus. Also she has reflux disease. PAST SURGICAL HISTORY: She denies. ALLERGIES: NKA. SOCIAL HISTORY: There is no smoking, drug abuse, or alcohol abuse. FAMILY HISTORY: Hypertension. REVIEW OF SYSTEMS: HEENT: There is no headache, visual changes, or hearing changes. GI: There is no nausea, no vomiting, no diarrhea, but there is abdominal pain, diffuse. : There is no urgency or frequency. SKIN: There is no other rash. JOINTS: She has chronic edema. MEDICATIONS: At home she is on clonidine, losartan, amlodipine, Coreg, gabapentin, and omeprazole. SOCIAL HISTORY: There is no smoking, drug abuse, or alcohol abuse. PHYSICAL EXAMINATION: GENERAL: She is currently alert, oriented, does not seem to be in acute distress, obese. HEENT: Normocephalic, does not appear icteric. NECK: Supple. CHEST: Few crackles bilateral. COR: S1, S2. No S3, S4, or murmur. ABDOMEN: Soft. Diffuse discomfort. EXTREMITIES: No edema. SKIN: There is no rash. LABORATORY DATA: Urine culture showing gram-negative rods. Her blood cultures are showing gram-negative rods. Her white count is 9.58, hemoglobin of 9.2, hematocrit 28, her platelets of 145. Sodium 135, potassium 3.8, and creatinine 2.30. IMPRESSION: 1. Sepsis on admission, gram-negative. 2. Pyelonephritis. 3. Obesity. 4. Chronic kidney disease. 5. Diabetes mellitus. 6. Hypertension. 7. Diverticulitis. PLAN: We will put the patient on Flagyl and cefepime. Continue with Cipro, adjust for kidney function. We will modify after the availability of culture and sensitivity. MD CAMMIE Albert/KEVIN /[id number]
[2019-05-27] MEDS: MAALOX/LIDOCAINE/BENADRYL/NYST 30 ML BTL PO PRN (16:32)
--- NOTE | 2019-05-27 18:56 | NUR ---
change of shift report given to MEME Majano. Pt is resting comfortably in bed in no acute distress noted. She denies having bloody stools or diarrhea. Respiration even and unlabored. IVF infusing well to LAC. Pt instructed to call for assistance, denies need for bed alarm sts her huband is helping her ambulate to the bathroom, bed is locked and side rails upx2 for safety.
--- NOTE | 2019-05-27 20:31 | Progress Note ---
DATE: 05/26/2019 SUBJECTIVE: The patient is doing much better today with no complaints. Diarrhea resolved. Nausea and vomiting improving. She is eating a little bit better today. PHYSICAL EXAMINATION: VITAL SIGNS: Temperature 98.1, pulse 63, respiratory rate is 18, blood pressure 128/64, and pulse ox 99% on room air. GENERAL: Not in acute distress, alert and oriented x3. Cooperative on examination. HEENT: Head is normocephalic and atraumatic. Eyes; pupils are equal, round, and reactive to light bilaterally. Extraocular movements are intact bilaterally. Throat, no evidence of erythema or exudates in the posterior pharynx. Has poor dentition. NECK: Supple. Good range of motion. PULMONARY: Clear to auscultation bilaterally. No wheezing, no rales, no rhonchi, no crackles appreciated. CARDIOVASCULAR: Positive S1, S2. No murmurs, rubs, or gallops appreciated. ABDOMEN: Soft, nondistended, and nontender to palpation. Bowel sounds present. MUSCULOSKELETAL: Strength is 5/5 throughout. No evidence of any muscle deficits on examination. No weakness appreciated. NEUROLOGICAL: Cranial nerves II through XII grossly intact. No evidence of any neurological deficits on exam. SKIN: Intact. Warm to touch. Good cap refill. PSYCHIATRIC: Normal affect and mood. EXTREMITIES: No edema. Good range of motion throughout. LAB FINDINGS: White count 9.5, hemoglobin now 9.2 it was 6.9 yesterday given her anemia, hematocrit is 28.7, and platelets of 140. Chemistry; sodium 135, potassium 3.8, chloride 104, bicarb 21, and anion gap 15.8, BUN 27, creatinine is 2.3, glucose 99, and calcium 9.2. Iron saturation of 7%. Troponins were negative. Albumin 2.7. Folic acid 13, vitamin B12 655. Urinalysis, 2+ protein, positive nitrite consistent with UTI. Microbiology; urine culture, gram-negative rods. Blood culture one of two is positive on anaerobic bottle, pending 2nd one. IMAGING: CT of abdomen and pelvis. Mild sigmoid diverticulitis. IMPRESSION: 1. Acute sigmoid diverticulitis-GI is following. Continue with diabetic diet. Stop IV fluids. The patient was hydrated. Sputum culture shows no growth. C. difficile toxin is pending. CT imaging was noted. 2. Nausea, vomiting, and dehydration were improving. Continue with antinausea medication. Stop IV fluids. Pain control. 3. Hypertension, stable. Continue same pain medication. 4. Type 2 diabetes. Insulin sliding scale, Accu-Cheks, A1c. 5. Fluid, electrolytes distress. Stop IV fluids. Diabetic diet. 6. PT, OT eval. 7. Lovenox for DVT prophylaxis. 8. Consultants. GI will continue to follow very closely. 9. Discharge planning: We will wait until the patient improves daily. Once improved, we will discharge home. MD AKIKO Dotson/MODL /[id number]
[2019-05-28] VITALS (9 sets, daily range): BP systolic 131–177; BP diastolic 60–70
[2019-05-28] MEDS: ACETAMINOPHEN 325 MG TAB PO PRN (04:02)
[2019-05-28] MEDS: METRONIDAZOLE 500MG/NS 100ML 100 ML IV SCH ×3 (05:00→21:21)
[2019-05-28] MEDS ORDERED: IRON SUCROSE 100 MG in SODIUM CHLORIDE 0.9% 100 ML 100 ML IV SCH (05:30)
[2019-05-28 05:40] LABS: BASOPHILS % 0.4 % (0.0-1.0); EOSINOPHILS # (AUTO) 0.1 (0.0-0.4); EOSINOPHILS % 1.2 % (0.0-6.0); HEMATOCRIT 29.5 % (34.2-44.1); HEMOGLOBIN 9.3 g/dL (12.0-16.0); LYMPHOCYTES # (AUTO) 0.3 (1.0-3.2); MEAN CORPUSCULAR HEMOGLOBIN 28.4 pg (28-32); MEAN CORPUSCULAR HGB CONC 31.5 g/dL (31-35); MEAN CORPUSCULAR VOLUME 90.2 fL (81-99); MONOCYTES # (AUTO) 0.6 (0.2-0.8); MONOCYTES % 8.5 % (4.4-11.3); NEUTROPHILS # (AUTO) 5.7 (2.1-6.9); NEUTROPHILS % 84.1 % (38.7-80.0); PLATELET COUNT 147 x10e3/uL (140-360); RED BLOOD COUNT 3.27 x10e6/uL (3.6-5.1)
[2019-05-28 05:57] LABS: ANION GAP 11.7 mmol/L (8-16); CALCIUM 9.3 mg/dL (8.4-10.2); CREATININE, SERUM 2.3 mg/dL (0.57-1.11)
[2019-05-28 06:02] LABS: POTASSIUM 4.7 mmol/L (3.5-5.1)
--- NOTE | 2019-05-28 06:55 | NUR ---
REPORT GIVEN TO ONCOMING NURSE,WALKING ROUNDS MADE.PT RESTING IN BED WITH NO S/S OF DISTRESS.
[2019-05-28] MEDS: CIPROFLOXACIN 400 MG/D5W 200ML 200 ML IV SCH (07:53)
[2019-05-28 08:57] LABS: HYPOCHROMASIA SLIGHT; LYMPHOCYTES % (MANUAL) 5 % (19-48); MONOCYTES % (MANUAL) 2 % (3.4-9.0); NEUTROPHILS % (MANUAL) 93 % (40-74); PLATELET ESTIMATE ADEQUATE; PLATELET MORPHOLOGY COMMENT NORMAL; RBC MORPHOLOGY COMMENT ABNORMAL; TOXIC GRANULATION MODERATE
[2019-05-28] MEDS: AMLODIPINE BESYLATE 10 MG TAB PO SCH (09:00)
[2019-05-28] MEDS: IRON SUCROSE 100 MG in SODIUM CHLORIDE 0.9% 100 ML 100 ML IV SCH (09:00)
[2019-05-28] MEDS: PANTOPRAZOLE SOD 40 MG TABEC PO SCH (09:00)
[2019-05-28] MEDS: CARVEDILOL 12.5 MG TAB PO SCH ×2 (09:00→16:51)
[2019-05-28] MEDS: GABAPENTIN 300 MG CAP PO SCH ×2 (09:00→16:51)
--- NOTE | 2019-05-28 13:44 | NUR ---
PIV started in right AC, X3 with third try successful. Flushed with 10cc NS and patient tolerated procedure well. Nurse aware of situation.
[2019-05-28] MEDS ORDERED: CEFEPIME HCL 1 GM VIAL IV SCH (16:15)
[2019-05-28] MEDS: MAALOX/LIDOCAINE/BENADRYL/NYST 30 ML BTL PO PRN (16:51)
[2019-05-28] MEDS ORDERED: CEFEPIME 1GM/NS 0.9% 50 ML 50 ML IV SCH (17:00)
--- NOTE | 2019-05-28 17:54 | Progress Note ---
DATE: 05/28/2019 Medicine Progress Note SUBJECTIVE: The patient is stating doing much better today with no other complaints. She does report that she had a fever last night, which she did. She had a temp of 101.3, T-max. Current temperature is 97. She is tolerating diet a little better, but not eating whole lot according to the . PHYSICAL EXAMINATION: VITAL SIGNS: Temperature is 97, T-max 101.3, pulse 58, respiratory rate is 19, blood pressure 131/60, and pulse ox 97% on room air. GENERAL: Not in acute distress. Alert and oriented x3. Cooperative on examination. HEENT: Head is normocephalic and atraumatic. Eyes; pupils are equal, round, and reactive to light bilaterally. Extraocular movements are intact bilaterally. Throat; no evidence of erythema or exudates in the posterior pharynx. Has poor dentition. NECK: Supple. Good range of motion. PULMONARY: Clear to auscultation bilaterally. No wheezing, no rales, no rhonchi. No crackles appreciated. CARDIOVASCULAR: Positive S1, S2. No murmurs, rubs, or gallops appreciated. ABDOMEN: Soft, nondistended, and nontender to palpation. Bowel sounds present. MUSCULOSKELETAL: Strength is 5/5 throughout. No evidence of any muscle deficits on examination. No weakness appreciated. NEUROLOGIC: Cranial nerves II through XII are grossly intact. No evidence of any neurological deficits on exam. SKIN: Intact. Warm to touch. Good cap refill. PSYCHIATRIC: Normal affect and mood. EXTREMITIES: No edema. Good range of motion throughout. LABORATORY DATA: White count 6.8, hemoglobin 9.3, hematocrit 29, platelets of 147. Chemistry; sodium 138, potassium 4.7, chloride 111, bicarb 28, anion gap of 9, BUN is 41, creatinine is 2.3, glucose 130, calcium 9.3. C difficile was negative. MICROBIOLOGY: Blood cultures, one of two is positive for gram-negative rods, but the urine culture positive for E. coli, which is resistant to Cipro. We will change antibiotics to IV cefepime. Stool samples are pending. IMPRESSION AND PLAN: 1. Acute sigmoid diverticulitis-GI is following, diabetic diet, IV fluids for hydration. Blood cultures one of two was positive for Escherichia coli. Antibiotics were rearranged. Clostridium difficile toxin was negative. 2. Sepsis with underlying bacteremia-one of two blood cultures positive for gram-negative rods. Urine culture positive for Escherichia coli, which is resistant to Cipro. We will stop Cipro, start on IV cefepime, which will hopefully cover the blood cultures. This could explain her underlying fever last night. We will also get repeat blood cultures x2. 3. Nausea, vomiting, dehydration, resolving. She is tolerating diet much better, but still not fully. 4. Hypertension, stable-continue same home medication. 5. Type 2 diabetes-insulin sliding scale, Accu-Cheks, A1c. 6. Fluid, electrolytes, and nutrition-stop IV fluids, diabetic diet. 7. Physical therapy and Occupational therapy evaluation. 8. Lovenox for deep vein thrombosis prophylaxis. CONSULTANTS: GI is following closely. DISCHARGE PLANNING: The patient is still not ready, will be here for several more days. Antibiotics have been rearranged. MD AKIKO Dotson/KEVIN /[id number]
--- NOTE | 2019-05-28 19:50 | Progress Note ---
DATE: SUBJECTIVE: Ms. Greenwood is up in chair, feeling better, no complaints. She said her abdominal pain is better. REVIEW OF SYSTEMS: HEENT: Negative. PULMONARY: Negative. CARDIAC: Negative. GENITOURINARY: Negative. GASTROINTESTINAL: Negative. LABORATORY DATA: Her white count is 6.81, hemoglobin 9.3, hematocrit 29, her platelet of 147. Sodium 138, potassium 4.7, creatinine 2.30. MEDICATIONS: The patient is currently on cefepime 1 g q.8 and gabapentin, metronidazole. OBJECTIVE: VITAL SIGNS: Her temperature 98.5, T-max is 101.3. HEENT: She is not icteric. NECK: Supple. No JVD. No lymphadenopathy. No thyromegaly. CHEST: Clear bilateral. HEART: S1, S2. No S3, S4, or murmur. ABDOMEN: Soft. Bowel sounds present. No tenderness. EXTREMITIES: No edema. She grew E coli, which was pansensitive, resistant only to Bactrim, Cipro, and levofloxacin. IMPRESSION AND PLAN: 1. Sepsis present on admission. Escherichia coli bacteremia, diverticulitis. Continue with cefepime. Continue metronidazole. 2. Chronic kidney disease, perhaps acute kidney injury. We will adjust her cefepime to 1 g q.12. 3. Continue with Flagyl. Continue IV fluid. Clinically, she is better, however, she has fever. We will keep an eye on it. 4. We will follow with you. MD CAMMIE Albert/KEVIN /[id number]
[2019-05-29] VITALS (8 sets, daily range): BP systolic 111–170; BP diastolic 59–73
[2019-05-29] MEDS: D5NS/KCL 20MEQ 1,000 ML IV SCH ×2 (00:12→16:19)
[2019-05-29] MEDS: ACETAMINOPHEN 325 MG TAB PO PRN ×2 (00:17→19:58)
[2019-05-29] MEDS ORDERED: CEFEPIME 1GM/NS 0.9% 50 ML 50 ML IV SCH (05:00)
[2019-05-29] MEDS: METRONIDAZOLE 500MG/NS 100ML 100 ML IV SCH ×3 (05:27→20:31)
[2019-05-29 05:28] LABS: BASOPHILS % 0.5 % (0.0-1.0); EOSINOPHILS # (AUTO) 0.1 (0.0-0.4); EOSINOPHILS % 3.7 % (0.0-6.0); HEMATOCRIT 28.9 % (34.2-44.1); HEMOGLOBIN 8.9 g/dL (12.0-16.0); LYMPHOCYTES # (AUTO) 0.3 (1.0-3.2); LYMPHOCYTES % 8.6 % (18.0-39.1); MEAN CORPUSCULAR HEMOGLOBIN 27.9 pg (28-32); MEAN CORPUSCULAR HGB CONC 30.8 g/dL (31-35); MEAN CORPUSCULAR VOLUME 90.6 fL (81-99); MONOCYTES # (AUTO) 0.6 (0.2-0.8); MONOCYTES % 16.8 % (4.4-11.3); NEUTROPHILS # (AUTO) 2.6 (2.1-6.9); NEUTROPHILS % 67.8 % (38.7-80.0); PLATELET COUNT 159 x10e3/uL (140-360); RED BLOOD COUNT 3.19 x10e6/uL (3.6-5.1)
[2019-05-29 05:55] LABS: ANION GAP 10.5 mmol/L (8-16); CALCIUM 9.7 mg/dL (8.4-10.2); CREATININE, SERUM 1.94 mg/dL (0.57-1.11); POTASSIUM 4.5 mmol/L (3.5-5.1)
--- NOTE | 2019-05-29 06:53 | NUR ---
REPORT GIVEN TO ONCOMING NURSE.WALKING ROUNDS MADE.PT RESTING IN BED WITH NO S/S OF DISTRESS.
[2019-05-29 07:15] LABS: EOSINOPHILS % (MANUAL) 3 % (0-7); LYMPHOCYTES % (MANUAL) 7 % (19-48); MONOCYTES % (MANUAL) 8 % (3.4-9.0); NEUTROPHILS % (MANUAL) 82 % (40-74)
[2019-05-29 07:16] LABS: PLATELET ESTIMATE ADEQUATE; PLATELET MORPHOLOGY COMMENT NORMAL; RBC MORPHOLOGY COMMENT NORMAL
[2019-05-29] MEDS: PANTOPRAZOLE SOD 40 MG TABEC PO SCH (08:30)
[2019-05-29] MEDS: MAALOX/LIDOCAINE/BENADRYL/NYST 30 ML BTL PO PRN (08:30)
[2019-05-29] MEDS: GABAPENTIN 300 MG CAP PO SCH ×2 (08:30→16:20)
[2019-05-29] MEDS: IRON SUCROSE 100 MG in SODIUM CHLORIDE 0.9% 100 ML 100 ML IV SCH (08:30)
[2019-05-29] MEDS: AMLODIPINE BESYLATE 10 MG TAB PO SCH (08:30)
[2019-05-29] MEDS: CARVEDILOL 12.5 MG TAB PO SCH ×2 (08:30→16:20)
--- NOTE | 2019-05-29 13:10 | NUR ---
patient alert and oriented, aware of upcoming room change. Patient to be transferred to new unit via wheelchair. In bed with 2 rails up, bed in lowest position and call mann within reach
--- NOTE | 2019-05-29 13:12 | NUR ---
PATIENT ARRIVED ON THE UNIT AT 1306 PER WHEELCHAIR. PATIENT IS SITTING UP IN THE SOFA AREA- PATIENT AWAKE, ALERT, AND IN STABLE CONDITION WITH NO S/S OF RESPIRATORY DISTRESS. PATIENT DENIES PAIN. TELEMETRY APPLIED. CALL LIGHT IS WITHIN REACH, PATIENT INSTRUCTED TO CALL FOR ASSISTANCE NEEDED.
[2019-05-29] MEDS: MEROPENEM 500MG/ NS 50ML 50 ML IV SCH ×2 (15:29→19:52)
--- NOTE | 2019-05-29 16:45 | Progress Note ---
DATE: 05/29/2019 Medicine Progress Note SUBJECTIVE: The patient is doing well today with no complaints. Denies any abdominal pain. Tolerating diet well. PHYSICAL EXAMINATION: VITAL SIGNS: Temperature is 96.9, T-max 99.9, pulse 64, respiratory rate is 18, blood pressure is 154/66, pulse ox 99% on room air. GENERAL: Not in acute distress. Alert and oriented x3. Cooperative on examination. HEENT: Head is normocephalic and atraumatic. Eyes; pupils are equal, round, and reactive to light bilaterally. Extraocular movements are intact bilaterally. Throat, no evidence of erythema or exudates in the posterior pharynx. Has poor dentition. NECK: Supple. Good range of motion. PULMONARY: Expiratory wheezing appreciated. Fine crackles appreciated, on nasal cannula. CARDIOVASCULAR: Positive S1, S2. No murmurs, rubs, or gallops appreciated. ABDOMEN: Soft, nondistended, and nontender to palpation. Bowel sounds present. MUSCULOSKELETAL: Strength is 5/5 throughout. No evidence of any muscle deficits on examination. No weakness appreciated. NEUROLOGICAL: Cranial nerves 2 through 12 grossly intact. No evidence of any neurological deficits on exam. SKIN: Intact. Warm to touch. Good cap refill. PSYCHIATRIC: Normal affect and mood. EXTREMITIES: No edema. Good range of motion throughout. LABORATORY DATA: Lab findings show white count is 3.8, hemoglobin 8.9, hematocrit is 28.9, platelets of 159. Chemistry; sodium 140, potassium 4.5, chloride 114, bicarb 20, anion gap of 10, BUN is 31, creatinine is 1.9, glucose 123, calcium 9.7. MICROBIOLOGY: Blood cultures showed ESBL E coli, now on antibiotics were rearranged. The second blood culture showed no growth. Urine culture was E coli. Stool cultures are pending. IMPRESSION: 1. Acute sigmoid diverticulitis, Gastroenterology following. Diabetic diet. IV fluids discontinued. Continue oral hydration. Blood cultures one of two are positive for ESBL Escherichia coli. Clostridium difficile toxin was negative. Antibiotics were rearranged to IV Merrem. 2. Sepsis secondary to bacteremia with one of two positive for ESBL Escherichia coli, IV antibiotics were changed to IV Merrem. We will order a central catheter placement. Infectious Disease consultation and needs outpatient antibiotic therapy via home health. Discussed the plan of care with the patient and her at bedside. 3. Nausea, vomiting, and dehydration, resolved. 4. Hypertension, stable. Continue same home medication. 5. Type 2 diabetes. Insulin sliding scale, Accu-Cheks, A1c. 6. Fluid, electrolytes, nutrition. Stop IV fluids. Diabetic diet. 7. Physical Therapy and Occupational Therapy eval and treat. 8. Lovenox for deep venous thrombosis prophylaxis. CONSULTANTS: GI is following. DISCHARGE PLANNING: Consulted Infectious Disease. We will place a central line for tomorrow. Case Management involved, to arrange IV antibiotic therapy. MD AKIKO Dotson/MODL /[id number]
--- NOTE | 2019-05-29 19:07 | NUR ---
PATIENT IS AWAKE AND IN STABLE CONDITION WITH NO S/S OF RESPIRATORY DISTRESS. NO PAIN VOICED. TELEMETRY APPLIED. PRESENT IN ROOM. CALL LIGHT IS WITHIN REACH, PATIENT INSTRUCTED TO CALL FOR ASSISTANCE NEEDED. BEDSIDE REPORT COMPLETED WITH ONCOMING NURSE.
--- NOTE | 2019-05-29 20:11 | Progress Note ---
DATE: SUBJECTIVE: Ms. Greenwood is doing well. There is no complaint. REVIEW OF SYSTEMS: HEENT: Negative. PULMONARY: Negative. CARDIAC: Negative. negative. LABORATORY DATA: Reviewed. Her blood showing E. coli ESBL, same in the urine, sensitive to gentamicin, meropenem, amikacin, and piperacillin-tazobactam. PHYSICAL EXAMINATION: GENERAL: She is currently alert, oriented, does not seem to be in acute distress. VITAL SIGNS: Stable. Currently afebrile. HEENT: She is not icteric. NECK: Supple. No JVD. No lymphadenopathy. No thyromegaly. CHEST: Clear bilaterally. HEART: S1, S2. No S3, S4, or murmur. ABDOMEN: Soft, obese. No tenderness. No hepatosplenomegaly. EXTREMITIES: No edema. IMPRESSION: 1. Sepsis, Escherichia coli secondary to pyelonephritis, ESBL. Meropenem 1 g IV q.8. We will ask vocational case manager to arrange for outpatient. We will get a PICC line. 2. Obesity. 3. Diverticulitis. 4. Discussed with the patient. We will follow. MD CAMMIE Albert/KEVIN /[id number]
[2019-05-30] VITALS (7 sets, daily range): BP systolic 130–201; BP diastolic 60–84
[2019-05-30] MEDS: MEROPENEM 500MG/ NS 50ML 50 ML IV SCH ×5 (01:53→22:16)
[2019-05-30] MEDS: D5NS/KCL 20MEQ 1,000 ML IV SCH (01:54)
[2019-05-30] MEDS: METRONIDAZOLE 500MG/NS 100ML 100 ML IV SCH ×3 (04:17→22:16)
--- NOTE | 2019-05-30 05:04 | NUR ---
BP elevated. No PRN meds available. Paged Dr. Farley for orders.
[2019-05-30 06:02] LABS: BASOPHILS % 0.3 % (0.0-1.0); EOSINOPHILS # (AUTO) 0.2 (0.0-0.4); EOSINOPHILS % 3.2 % (0.0-6.0); HEMATOCRIT 32.2 % (34.2-44.1); HEMOGLOBIN 9.9 g/dL (12.0-16.0); LYMPHOCYTES # (AUTO) 0.3 (1.0-3.2); LYMPHOCYTES % 4.5 % (18.0-39.1); MEAN CORPUSCULAR HEMOGLOBIN 28.4 pg (28-32); MEAN CORPUSCULAR HGB CONC 30.7 g/dL (31-35); MEAN CORPUSCULAR VOLUME 92.3 fL (81-99); MONOCYTES # (AUTO) 1.1 (0.2-0.8); NEUTROPHILS # (AUTO) 4.5 (2.1-6.9); NEUTROPHILS % 71.3 % (38.7-80.0); PLATELET COUNT 187 x10e3/uL (140-360); RED BLOOD COUNT 3.49 x10e6/uL (3.6-5.1); RED CELL DISTRIBUTION WIDTH 17.2 % (11.7-14.4)
[2019-05-30 06:32] LABS: ANION GAP 10.7 mmol/L (8-16); CALCIUM 9.9 mg/dL (8.4-10.2); CREATININE, SERUM 1.68 mg/dL (0.57-1.11); POTASSIUM 4.7 mmol/L (3.5-5.1)
--- NOTE | 2019-05-30 06:45 | NUR ---
Received orders from Dr. Farley regarding patient's elevated bp.
[2019-05-30] MEDS: HYDRALAZINE HCL 20 MG/ML VIAL IV PRN ×2 (07:21→23:27)
--- NOTE | 2019-05-30 07:30 | NUR ---
PT UP IN BED NO DISTRESS NOTED ,DENIES PAIN.
[2019-05-30] MEDS: CARVEDILOL 12.5 MG TAB PO SCH ×2 (09:00→16:47)
[2019-05-30] MEDS: NIFEDIPINE CR 30 MG TAB PO SCH (09:00)
[2019-05-30] MEDS: GABAPENTIN 300 MG CAP PO SCH ×2 (09:00→16:47)
[2019-05-30] MEDS: PANTOPRAZOLE SOD 40 MG TABEC PO SCH (09:00)
[2019-05-30 09:37] LABS: INR 1.34; PROTHROMBIN TIME 17.2 seconds (11.9-14.5)
[2019-05-30] MEDS: IRON SUCROSE 100 MG in SODIUM CHLORIDE 0.9% 100 ML 100 ML IV SCH (10:00)
[2019-05-30 11:11] LABS: EOSINOPHILS % (MANUAL) 4 % (0-7); LYMPHOCYTES % (MANUAL) 4 % (19-48); MONOCYTES % (MANUAL) 10 % (3.4-9.0); NEUTROPHILS % (MANUAL) 82 % (40-74); PLATELET ESTIMATE ADEQUATE; PLATELET MORPHOLOGY COMMENT NORMAL; RBC MORPHOLOGY COMMENT NORMAL
--- NOTE | 2019-05-30 12:54 | NUR ---
PT TRANSPORTED TO IR VIA BED
--- NOTE | 2019-05-30 13:14 | Progress Note ---
DATE: 05/30/2019 Medicine Progress Note SUBJECTIVE: The patient is doing okay today with no complaints. She is stating that she has some oral ulceration in her mouth, Magic mouthwash is helping tremendously. LABORATORY DATA: White count 6.2, hemoglobin 9.9, hematocrit 32, and platelets of 187. Chemistry; sodium 141, potassium 4.3, chloride 113, bicarb 22, anion gap of 10, BUN 22, creatinine is 1.68, glucose 124, and calcium 9.9. Cultures were noted. Pending stool sample culture. PHYSICAL EXAMINATION: VITAL SIGNS: Temperature is 98.8, pulse 77, respiratory rate is 20, blood pressure 168/74, and pulse ox 98% on room air. GENERAL: No acute distress. Alert and oriented x3. Cooperative on examination. HEENT: Head is normocephalic and atraumatic. Eyes; pupils are equal, round, and reactive to light bilaterally. Extraocular movements intact bilaterally. Throat; no evidence of erythema or exudates in the posterior pharynx. Has poor dentition. NECK: Supple. Good range of motion. PULMONARY: Clear to auscultation bilaterally. No wheezing, no rales, no rhonchi, no crackles appreciated. CARDIOVASCULAR: Positive S1 and S2. No murmurs, rubs, or gallops appreciated. ABDOMEN: Soft, nondistended, and nontender to palpation. Bowel sounds present. MUSCULOSKELETAL: Strength is 5/5 throughout. No evidence of any muscle deficits on examination. No weakness appreciated. NEUROLOGIC: Cranial nerves II through XII were grossly intact. No evidence of any neurological deficits on exam. SKIN: Intact. Warm to touch. Good cap refill. PSYCHIATRIC: Normal affect and mood. EXTREMITIES: No edema. Good range of motion throughout. IMPRESSION AND PLAN: 1. Acute sigmoid diverticulitis-continue with IV antibiotics. ID consulted that the patient has positive bacteremia-ESBL E coli. She is scheduled to have a central catheter placement today. Case Management has been notified for IV antibiotic arrangement for home. 2. Sepsis secondary to bacteremia-continue IV antibiotics with Merrem. Central catheter placement today. ID following. 3. Nausea, vomiting, and dehydration, resolved. 4. Hypertension-blood pressure is elevated, discontinue Norvasc, add nicardipine XL 30 mg daily . 5. Type 2 diabetes-insulin sliding scale, Accu-Cheks, A1c. 6. Fluid, electrolytes, and nutrition-stop IV fluids, diabetic diet. 7. Physical Therapy/Occupational Therapy evaluation. 8. Lovenox for deep venous thrombosis prophylaxis. CONSULTANTS: GI and ID. DISCHARGE PLANNING: Once IV antibiotics have been rearranged and central placement has been performed, the patient can be discharged home. MD AKIKO Dotson/KEVIN /[id number]
[2019-05-30] MEDS ORDERED: LIDOCAINE HCL 1% LOCAL INJ 20 ML VIAL ONE (13:35)
--- NOTE | 2019-05-30 13:45 | NUR ---
RETURNED TO ROOM VIA BED ,SINGLE LUMEN CATHETER IN PLACE.NILES MARIE
--- NOTE | 2019-05-30 14:52 | NUR ---
ORDERS REC'D FOR IV ABX X 2 WEEKS [facility] WITH [employer] CALLED AND FAXED CLINICALS PH: [phone] FAX: [phone] CONFIRMATION REC'D SPOKE WITH PATRICIA AT [facility] CELL: [phone] PLAN DISCHARGE HOME WHEN APPROVED BY INSURANCE
--- NOTE | 2019-05-30 15:40 | Diagnostic Imaging Report ---
PROCEDURE: Tunneled central venous catheter placement Procedural Personnel Attending physician(s): Zaheer Crum MD Fellow physician(s): None Resident physician(s): None Advanced practice provider(s): None Pre-procedure diagnosis: Bacteremia Post-procedure diagnosis: Same Indication: Bacteremia requiring long-term antibiotic therapy Additional clinical history: None Complications: No immediate complications. IMPRESSION: Insertion of right-sided single-lumen tunneled Proline catheter, with tip just beyond the expected location of the cavoatrial junction. Plan: The catheter may be used immediately. PROCEDURE SUMMARY: - Venous access with ultrasound guidance - Tunneled central venous catheter insertion with fluoroscopic guidance - Additional procedure(s): None PROCEDURE DETAILS: Pre-procedure Consent: Informed consent for the procedure including risks, benefits and alternatives was obtained and time-out was performed prior to the procedure. Preparation (MIPS): The site was prepared and draped using all elements of maximal sterile barrier technique including sterile gloves, sterile gown, cap, mask, large sterile sheet, sterile ultrasound probe cover, hand hygiene and cutaneous antisepsis with 2% chlorhexidine. Medical reason for site preparation exception (MIPS): Not applicable Anesthesia/sedation Level of anesthesia/sedation: No sedation Access Local anesthesia was administered. The vessel was sonographically evaluated and determined to be patent. Real time ultrasound was used to visualize needle entry into the vessel and a permanent image was not stored. Vein accessed: Internal jugular vein Access technique: Micropuncture set with 21 gauge needle Catheter placement An incision was made near the venous access site and the catheter was tunneled subcutaneously to the venous access site and trimmed to appropriate length. The catheter was advanced via a peel-away sheath into the vein under fluoroscopic guidance. Catheter tip location was fluoroscopically verified and a permanent image was stored. Catheter placed: Proline Catheter size (Persian): 5 Catheter flush: Saline Closure A sterile dressing was applied. Access site closure technique: Tissue adhesive Catheter securement technique: Non-absorbable suture Contrast Contrast agent: None Radiation Dose Fluoroscopy time (min): 0.3 Reference air kerma (mGy): 497 Kerma area product (Gy-cm2): 1.27 Additional Details Additional description of procedure: None Equipment details: None Specimens removed: None Estimated blood loss (mL): Less than 10 Standardized report: [email or web address] Attestation Signer name: Zaheer Crum MD I attest that I was present for the entire procedure. I reviewed the stored images and agree with the report as written. Signed by: Zaheer Crum MD on 05/30/2019 3:36 PM
[2019-05-30] MEDS: ACYCLOVIR 200 MG CAP PO SCH ×2 (15:44→22:16)
--- NOTE | 2019-05-30 17:42 | NUR ---
PT UP ON COUCH DENIES PAIN,NO DISTRESS NOTED
--- NOTE | 2019-05-30 20:29 | NUR ---
NOTED PT SITTING ON THE CHAIR .C/O OF COLD .DENIES PAIN IV FLUID IS RUNNING .CALL LGHT WITH IN REACH .CONTINUE TO MONITOR
[2019-05-31] VITALS: BP 180/77
[2019-05-31] MEDS: ACETAMINOPHEN 325 MG TAB PO PRN (02:02)
[2019-05-31] MEDS: MEROPENEM 500MG/ NS 50ML 50 ML IV SCH ×3 (02:15→14:15)
[2019-05-31 04:00] VITALS: BP 160/69
[2019-05-31] MEDS: D5NS/KCL 20MEQ 1,000 ML IV SCH ×2 (05:10→07:19)
[2019-05-31] MEDS: METRONIDAZOLE 500MG/NS 100ML 100 ML IV SCH ×2 (05:16→13:14)
[2019-05-31 05:32] LABS: BASOPHILS % 0.5 % (0.0-1.0); EOSINOPHILS # (AUTO) 0.2 (0.0-0.4); EOSINOPHILS % 2.7 % (0.0-6.0); HEMATOCRIT 29.3 % (34.2-44.1); HEMOGLOBIN 9.2 g/dL (12.0-16.0); LYMPHOCYTES # (AUTO) 0.4 (1.0-3.2); LYMPHOCYTES % 7.4 % (18.0-39.1); MEAN CORPUSCULAR HEMOGLOBIN 28.6 pg (28-32); MEAN CORPUSCULAR HGB CONC 31.4 g/dL (31-35); MONOCYTES % 17.3 % (4.4-11.3); NEUTROPHILS # (AUTO) 3.9 (2.1-6.9); NEUTROPHILS % 66.6 % (38.7-80.0); PLATELET COUNT 193 x10e3/uL (140-360); RED BLOOD COUNT 3.22 x10e6/uL (3.6-5.1); RED CELL DISTRIBUTION WIDTH 17.2 % (11.7-14.4)
[2019-05-31 05:45] LABS: ANION GAP 9.6 mmol/L (8-16); CALCIUM 9.8 mg/dL (8.4-10.2); CREATININE, SERUM 1.39 mg/dL (0.57-1.11); POTASSIUM 4.6 mmol/L (3.5-5.1)
[2019-05-31] MEDS: ACYCLOVIR 200 MG CAP PO SCH ×2 (06:00→13:14)
[2019-05-31 06:20] LABS: LYMPHOCYTES % (MANUAL) 9 % (19-48); MONOCYTES % (MANUAL) 14 % (3.4-9.0); NEUTROPHILS % (MANUAL) 77 % (40-74); PLATELET MORPHOLOGY COMMENT NORMAL; RBC MORPHOLOGY COMMENT NORMAL
[2019-05-31 06:21] LABS: PLATELET ESTIMATE ADEQUATE
--- NOTE | 2019-05-31 07:12 | NUR ---
PT RESTING .C/O HEADACHE AND GIVEN TYLENOL .CONTINUE TO MONITOR FAMILY AT THE BEDSIDE CALL LIGHT WITH IN REACH
[2019-05-31 07:30] VITALS: BP 173/72
--- NOTE | 2019-05-31 07:30 | NUR ---
REC'D PT AAOX3, ON ROOM AIR, NO S/S OF DISTRESS. RIGHT CENTRAL LINE X1 LUMEN IS INTACT AND PATENT. FLUIDS RUNNING AT 75 ML/HR. AT BEDSIDE. PATIENT SITTING ON SOFA EATING BREAKFAST. CALL HOFF WITHIN REACH.
[2019-05-31 07:56] VITALS: BP 173/72
[2019-05-31] MEDS: CARVEDILOL 12.5 MG TAB PO SCH (08:56)
[2019-05-31] MEDS: GABAPENTIN 300 MG CAP PO SCH (08:57)
[2019-05-31] MEDS: PANTOPRAZOLE SOD 40 MG TABEC PO SCH (08:57)
[2019-05-31] MEDS: NIFEDIPINE CR 30 MG TAB PO SCH (08:57)
[2019-05-31] MEDS: IRON SUCROSE 100 MG in SODIUM CHLORIDE 0.9% 100 ML 100 ML IV SCH (09:10)
--- NOTE | 2019-05-31 10:39 | NUR ---
RECEIVED CALL FROM [facility] CONFIRMING THEY ACCEPTED THE PT.
[2019-05-31 11:32] VITALS: BP 164/67
[2019-05-31] MEDS ORDERED: MEROPENEM 500MG/ NS 50ML 50 ML IV SCH (12:30)
[2019-05-31] MEDS ORDERED: PROCARDIA XL30 MG PO (14:58)
[2019-05-31] MEDS ORDERED: ACYCLOVIR200 MG PO (14:59)
[2019-05-31] MEDS ORDERED: FLAGYL500 MG PO (15:02)
[2019-05-31] MEDS ORDERED: LASIX40 MG PO (15:05)
[2019-05-31 15:19] VITALS: BP 153/70
--- NOTE | 2019-05-31 15:41 | NUR ---
PT GETTING IV ABX FROM [facility] READY TO DISCHARGE FROM [facility] PERSPECTIVE
--- NOTE | 2019-05-31 15:55 | NUR ---
SONNY RECEIVED CALL FROM [facility] (O:[phone], F: [phone]) REQUESTING LABS, CENTRAL LINE CARE. SONNY SPOKE WITH DR. AZUL WHO REQUESTED WEEKLY CBC/BMP RESULTS TO BE SENT TO DR. MOON'S OFFICE. HE ALSO REQUESTED CENTRAL LINE CARE EVERY 72 HOURS AND PATIENT FOLLOW-UP WITH DR MOON'S OFFICE IN TWO WEEKS TO DC THE CENTRAL LINE. SONNY SENT ORDERS TO [facility] VIA FAX. SONNY CONFIRMED FAX RECEIVED BY PATRICIA. SHE STATES PATIENT HAS HOME HEALTH SERVICES WITH [facility]. Addendum: 05/31/19 at 1603 by Rosie Mak CM DR. AZUL STATES PATIENT IS READY FOR DISCHARGE FROM HIS STANDPOINT, LONG THE HOME INFUSION/HOME HEALTH IS SET UP.
[2019-05-31] MEDS ORDERED: MERREM500 MG IV (16:02)
--- NOTE | 2019-05-31 17:10 | NUR ---
PT TO GO HOME WITH RIGHT CENTRAL LINE. NO COMPLICATIONS TO CENTRAL LINE. NO S/S OF DISTRESS. DISCHARGE PAPERS AND PRESCRIPTIONS SIGNED AND UNDERSTOOD. PATIENT ESCORTED VIA WHEELCHAIR TO 'S CAR.
--- NOTE | 2019-05-31 17:46 | Discharge Summary ---
FINAL DISCHARGE DIAGNOSES: 1. Acute sigmoid diverticulitis. 2. Extended spectrum beta-lactamases Escherichia coli bacteremia. 3. Escherichia coli urinary tract infection. 4. Sepsis secondary to underlying bacteremia and urinary tract infection. 5. Nausea, vomiting, dehydration, resolved. 6. Hypertension. 7. Type 2 diabetes. 8. Iron-deficiency anemia. 9. Emphysematous mouth ulcerations. CONSULTANTS: 1. Infectious Disease. 2. GI. VITAL SIGNS: Temperature 98.2, pulse 72, respiratory rate is 18, blood pressure is 160/69, and pulse ox 98% on room air. LAB FINDINGS: White count 5.8, hemoglobin 9.0, hematocrit is 29, platelets of 193. Coagulation; PT 17, INR 1.34, PTT 47. Chemistry; sodium 139, potassium 4.6, chloride 114, bicarb 20, anion gap of 9.6, BUN is 16, creatinine is 1.39, glucose is 12, calcium 9.8, iron saturation 7%. Total bilirubin is 3. AST 53, ALT 21. BNP 1879. Troponin 0.012. All levels were negative. Vitamin B12 655, folate 13. Urinalysis consistent with UTI. C. difficile toxin was negative. MICROBIOLOGY: Urine culture positive for E coli. Blood culture 1 of 2 was positive for ESBL bacteremia. The second culture was negative. The initial ESBL E coli sensitive to Merrem. Stool culture, the patient denies any more loose stool in which stool sample was canceled. IMAGING STUDIES: Chest x-ray shows mild pulmonary venous congestion on admission. Repeat chest x-ray 05/26/2019, shows low lung volumes and pulmonary venous infection. CT abdomen and pelvis shows mild sigmoid diverticulitis. HOSPITAL COURSE: A 68-year-old female, who came into the ED with complaints of abdominal pain, nausea, vomiting, and diarrhea several days prior to arrival to the hospital. GI was consulted. Imaging studies consistent with acute sigmoid diverticulitis. The patient was started on IV antibiotics and which the patient improved. Throughout the hospital course, initially she developed a fever, in which her urine culture found to be positive for E coli. She also was found to have 1 of 2 positive ESBL E coli bacteremia, was treated for underlying sepsis. IV antibiotics were rearranged accordingly to the sensitivities of the blood and urine cultures. ID was consulted. The patient will need 2 weeks of IV Merrem for underlying bacteremia. A central line was placed and IV antibiotic Merrem 500 mg IV q.8 hours x2 weeks was arranged via home health. The Merrem will take care of the urinary tract infection as well as the bacteremia. I discussed this with ID as well. The patient was also started on oral acyclovir for oral ulcerations and will be discharged with acyclovir as well. The patient will also be discharged on oral Flagyl due to underlying diverticulitis. The patient was cleared for discharge by ID and GI. The patient was stable prior to being discharged home. The patient was tolerating diet well. On the day of discharge, vital signs were stable, labs were reviewed and stable. The patient was seen, evaluated, and examined thoroughly on the day of discharge. No other complaints. The patient verbalized understanding and agreed to plan of care to follow up accordingly as an outpatient with the primary care physician in 1 week and GI and ID in 2 weeks' time. MEDICATIONS: See med reconciliation form and includin. Nifedipine XL 30 mg one tab daily. 2. Acyclovir 800 mg p.o. q.8 hours x7 days. 3. Flagyl 500 mg one tab p.o. t.i.d. x7 days. 4. Merrem 500 mg IV q.8 hours x14 days total, which was arranged via home health. DISPOSITION: Home. CONDITION: Stable. DIET: Heart healthy. In the event of any worsening symptoms, the patient was advised to come back to the ED for further evaluation. Discharge summary took greater than 35 minutes. MD AKIKO Dotson/KEVIN /[id number]
== END 2019-05-31 17:16 | disposition home health service (06) | DRG 872 ==
LOC: ER 18:37 → ERHOLD 05-26 06:30 → IMCU 05-26 15:39 → OBSVTOIN 05-27 12:11 → MED/SURG3 05-29 13:08
PROVIDERS: ADMIT Internal Medicine; ATTEND Internal Medicine
PROC: 30253N1 (ICD-10-PCS; 2019-05-26)
PROC: 02HV33Z Insertion of Infusion Device into Superior Vena Cava, Percutaneous Approach (ICD-10-PCS; principal; 2019-05-30)
PROC: B5181ZA Fluoroscopy of Superior Vena Cava using Low Osmolar Contrast, Guidance (ICD-10-PCS; 2019-05-30)
DX: A41.51 Sepsis due to Escherichia coli [E. coli] (principal); K57.32 Diverticulitis of large intestine without perforation or abscess without bleeding; N10 Acute pyelonephritis; N17.9 Acute kidney failure, unspecified; E66.01 Morbid (severe) obesity due to excess calories; E78.5 Hyperlipidemia, unspecified; E11.22 Type 2 diabetes mellitus with diabetic chronic kidney disease; I12.9 Hypertensive chronic kidney disease with stage 1 through stage 4 chronic kidney disease, or unspecified chronic kidney disease; N18.9 Chronic kidney disease, unspecified; E86.0 Dehydration; Z68.36 Body mass index [BMI] 36.0-36.9, adult; R19.7 Diarrhea, unspecified; K12.1 Other forms of stomatitis; Z86.010 Personal history of colon polyps; K21.9 Gastro-esophageal reflux disease without esophagitis; R53.81 Other malaise; Z79.4 Long term (current) use of insulin; D50.9 Iron deficiency anemia, unspecified
CPT/HCPCS: 36415; 36558; 71046; 74176; 74470; 77001; 80048; 80053; 81001; 82607; 82728; 82746; 82948; 83540; 83605; 83880; 84466; 84484; 85025; 85045; 85610; 85730; 86850; 86900; 86920; 87040; 87045; 87071; 87086; 87186; 87205; 87493; 96361; 99284; G0378; J0360; J0692; J0696; J1756; J2001; J2405; J7050; P9016; Q0162

== ENCOUNTER 2021-04-07 08:48 | Inpatient (IN) | payer OTHER ==
[~2021-04-07] VITALS: Ht 152.4 cm; Wt 86.4 kg
[~2021-04-07 08:48] MED LIST changes: +ACYCLOVIR200 MG PO; +CIPRO500 MG PO; +FLAGYL500 MG PO; +LASIX40 MG PO; +MERREM500 MG IV; +PROCARDIA XL30 MG PO
[2021-04-07] MEDS ORDERED: MORPHINE SULFATE INJ 2 MG/ML SYR IV STA (08:58)
[2021-04-07] MEDS ORDERED: PANTOPRAZOLE 40 MG 10ML VIAL IV STA (08:58)
[2021-04-07] MEDS ORDERED: ONDANSETRON HCL INJ 2MG/ML 2ML 2 MG/ML VIAL IV STA (08:58)
[2021-04-07] MEDS ORDERED: SODIUM CHLORIDE 0.9% 500ML 500 ML IV ONE (09:00)
[2021-04-07] MEDS ORDERED: DIATRIZOATE MEGL/DIATRIZOA SOD 30 ML BTL PO ONE (09:27)
[2021-04-07 09:31] LABS: BASOPHILS % 0.3 % (0.0-1.0); EOSINOPHILS % 0.3 % (0.0-6.0); HEMATOCRIT 26.3 % (34.2-44.1); HEMOGLOBIN 7.8 g/dL (12.0-16.0); LYMPHOCYTES # (AUTO) 0.7 (1.0-3.2); LYMPHOCYTES % 9.8 % (18.0-39.1); MEAN CORPUSCULAR HEMOGLOBIN 29.7 pg (28-32); MEAN CORPUSCULAR HGB CONC 29.7 g/dL (31-35); MONOCYTES # (AUTO) 0.2 (0.2-0.8); MONOCYTES % 2.6 % (4.4-11.3); NEUTROPHILS # (AUTO) 5.9 (2.1-6.9); NEUTROPHILS % 86.4 % (38.7-80.0); PLATELET COUNT 125 x10e3/uL (140-360); RED BLOOD COUNT 2.63 x10e6/uL (3.6-5.1); RED CELL DISTRIBUTION WIDTH 17.2 % (11.7-14.4)
[2021-04-07 09:46] LABS: ALBUMIN 2.6 g/dL (3.5-5.0); ALBUMIN/GLOBULIN RATIO 0.7 (0.8-2.0); ANION GAP 13.7 mmol/L (8-16); CALCIUM 10.1 mg/dL (8.4-10.2); CREATININE, SERUM 1.65 mg/dL (0.57-1.11); MAGNESIUM 2.3 MG/DL (1.3-2.1); POTASSIUM 4.7 mmol/L (3.5-5.1)
[2021-04-07 09:47] LABS: CLARITY,URINE CLEAR (CLEAR); COLOR,URINE YELLOW (YELLOW); LEUKOCYTE ESTERASE ,URINE NEGATIVE (NEGATIVE); NITRITE,URINE POSITIVE (NEGATIVE)
[2021-04-07 09:48] LABS: KETONES,URINE NEGATIVE (NEGATIVE); PROTEIN,URINE DIPSTICK >=300 (NEGATIVE); URINE UROBILINOGEN 0.2 mg/dL (0.2 - 1)
[2021-04-07 10:00] LABS: CREATINE KINASE MB 3.2 ng/mL (0-5.0)
[2021-04-07 10:05] LABS: RBC,URINE 0-5 /HPF (0-5)
[2021-04-07 10:06] LABS: BACTERIA,URINE MANY /HPF; EPITHELIAL CELLS,URINE FEW /LPF
[2021-04-07 10:13] LABS: INR 1.07; PROTHROMBIN TIME 14.5 seconds (11.9-14.5)
[2021-04-07] MEDS ORDERED: SODIUM CHLORIDE 0.9% 50ML 50 ML ONE (11:04)
[2021-04-07] MEDS ORDERED: PIPERACILLIN/TAZOBAC 3.375 GM VIAL ONE (11:04)
[2021-04-07] MEDS ORDERED: PIPERACILLIN/TAZOBACTAM SOD 2.25 GM VIAL ONE (11:05)
[2021-04-07] MEDS ORDERED: MORPHINE SULFATE INJ 4 MG/ML INJ 1ML IV ONE (11:15)
[2021-04-07] MEDS: METRONIDAZOLE 500MG/NS 100ML 100 ML IV SCH ×3 (11:38→23:59)
[2021-04-07] MEDS ORDERED: MORPHINE SULFATE INJ 2 MG/ML SYR IV PRN (11:45)
[2021-04-07] MEDS ORDERED: PIPERACILLIN/TAZOBACTAM 2.25 GM in SODIUM CHLORIDE 0.9% 50ML 50 ML IV SCH (12:00)
[2021-04-07] MEDS: SODIUM CHLORIDE 0.9% 1000ML 1,000 ML IV SCH ×2 (12:49→20:20)
[2021-04-07] MEDS ORDERED: VITAMIN D325 MCG PO (12:59)
[2021-04-07] MEDS ORDERED: calcium PO (12:59)
[2021-04-07] MEDS ORDERED: fiber capsules PO (12:59)
[2021-04-07] MEDS ORDERED: HYDROCHLOROTHIA25 MG PO (12:59)
[2021-04-07] MEDS ORDERED: LEXAPRO10 MG PO (12:59)
[2021-04-07] MEDS ORDERED: HYDRALAZINE HCL25 MG PO (12:59)
[2021-04-07] MEDS ORDERED: PROVENTIL HFA6.7 GM INH (12:59)
[2021-04-07] MEDS ORDERED: HYDROXYCHLOROQ200 MG PO (12:59)
[2021-04-07] MEDS ORDERED: FENTANYL1 EAC1 TOP (12:59)
[2021-04-07] MEDS ORDERED: ONDANSETRON ODT4 MG PO (12:59)
[2021-04-07] MEDS ORDERED: PREDNISONE5 MG PO (12:59)
[2021-04-07] MEDS ORDERED: PLAVIX75 MG PO (12:59)
[2021-04-07] MEDS ORDERED: TRESIBA FL100 UNIT/1 SC (12:59)
[2021-04-07] MEDS ORDERED: ALTOPREV40 MG PO (12:59)
[2021-04-07] MEDS: MEROPENEM 1GM 100 ML IV SCH (14:04)
[2021-04-07] MEDS ORDERED: DEXTROSE 50% SYRINGE 50 ML IV PRN (15:00)
[2021-04-07] MEDS ORDERED: ACETAMINOPHEN 650 MG SUPP PR PRN (15:00)
[2021-04-07 15:55] VITALS: BP 170/60
[2021-04-07] MEDS: DEXTROSE 5%/0.9% SOD CHL 1,000 ML IV SCH ×2 (15:56→17:49)
[2021-04-07] MEDS: ONDANSETRON HCL INJ 2MG/ML 2ML 2 MG/ML VIAL IV PRN ×2 (16:01→19:59)
[2021-04-07] MEDS: MORPHINE SULFATE INJ 2 MG/ML SYR IV PRN ×2 (16:01→19:59)
[2021-04-07 16:31] VITALS: BP 170/60
[2021-04-07 16:37] VITALS: BP 170/60
[2021-04-07] MEDS: INSULIN REGULAR, HUMAN 100 UNIT/1 ML 3ML VIAL SQ SCH (17:59)
[2021-04-07] MEDS ORDERED: DEXTROSE 10% 1,000 ML IV ONE (18:00)
[2021-04-07] MEDS ORDERED: FUROSEMIDE INJ 10 MG/ML 2 ML VIAL IV ONE (18:00)
[2021-04-07 18:23] LABS: CREATINE KINASE MB 2.8 ng/mL (0-5.0)
[2021-04-07 20:00] VITALS: BP 159/85
[2021-04-07 21:00] VITALS: BP 132/98
[2021-04-07] MEDS ORDERED: HYDROCORTISONE SOD SUCCINATE 100 MG VIAL IV SCH ×2 (21:00→22:00)
[2021-04-07 22:00] VITALS: BP 187/95
[2021-04-07] MEDS: HYDRALAZINE HCL 20 MG/ML VIAL IV PRN (22:35)
[2021-04-07] MEDS ORDERED: FUROSEMIDE INJ 10 MG/ML 2 ML VIAL ONE (22:41)
[2021-04-07 23:38] LABS: % IRON SATURATION 15 % (15-50); IRON 30 ug/dL (50-170); TOTAL IRON BINDING CAPACITY 197 ug/dL (261-478); TRANSFERRIN 141 mg/dL (180-382)
[2021-04-08] VITALS (24 sets, daily range): BP systolic 157–200; BP diastolic 56–112
[2021-04-08] MEDS ORDERED: SODIUM CHLORIDE 0.9% 250ML 250 ML ONE (00:03)
[2021-04-08 00:39] LABS: CREATINE KINASE MB 2.2 ng/mL (0-5.0)
[2021-04-08] MEDS ORDERED: HYDROCORTISONE SOD SUCCINATE 100 MG VIAL IV SCH (02:00)
[2021-04-08] MEDS: MEROPENEM 1GM 100 ML IV SCH ×2 (02:04→14:38)
[2021-04-08] MEDS: INSULIN REGULAR, HUMAN 100 UNIT/1 ML 3ML VIAL SQ SCH ×5 (02:05→23:45)
[2021-04-08] MEDS: SODIUM CHLORIDE 0.9% 1000ML 1,000 ML IV SCH ×2 (02:05→15:30)
[2021-04-08] MEDS: HYDRALAZINE HCL 20 MG/ML VIAL IV PRN ×4 (04:57→23:55)
[2021-04-08] MEDS: METRONIDAZOLE 500MG/NS 100ML 100 ML IV SCH ×4 (05:14→23:15)
[2021-04-08 05:41] LABS: BASOPHILS % 0.4 % (0.0-1.0); EOSINOPHILS % 0.1 % (0.0-6.0); HEMATOCRIT 34.1 % (34.2-44.1); HEMOGLOBIN 10.5 g/dL (12.0-16.0); LYMPHOCYTES # (AUTO) 0.6 (1.0-3.2); MEAN CORPUSCULAR HEMOGLOBIN 29.8 pg (28-32); MEAN CORPUSCULAR HGB CONC 30.8 g/dL (31-35); MEAN CORPUSCULAR VOLUME 96.9 fL (81-99); MONOCYTES # (AUTO) 0.3 (0.2-0.8); MONOCYTES % 4.4 % (4.4-11.3); NEUTROPHILS # (AUTO) 5.7 (2.1-6.9); NEUTROPHILS % 85.1 % (38.7-80.0); PLATELET COUNT 99 x10e3/uL (140-360); RED BLOOD COUNT 3.52 x10e6/uL (3.6-5.1); RED CELL DISTRIBUTION WIDTH 16.3 % (11.7-14.4)
[2021-04-08 06:15] LABS: ALBUMIN 2.3 g/dL (3.5-5.0); ALBUMIN/GLOBULIN RATIO 0.7 (0.8-2.0); ANION GAP 12.4 mmol/L (8-16); CALCIUM 9.2 mg/dL (8.4-10.2); CREATININE, SERUM 1.45 mg/dL (0.57-1.11); POTASSIUM 4.4 mmol/L (3.5-5.1)
[2021-04-08] MEDS: MORPHINE SULFATE INJ 2 MG/ML SYR IV PRN ×3 (06:55→22:00)
[2021-04-08] MEDS: ONDANSETRON HCL INJ 2MG/ML 2ML 2 MG/ML VIAL IV PRN ×3 (06:55→21:25)
[2021-04-08 08:07] LABS: FERRITIN 2498.07 ng/mL (4.63-204.00)
[2021-04-08 08:11] LABS: CREATINE KINASE MB 1.5 ng/mL (0-5.0)
[2021-04-08] MEDS: IRON SUCROSE 100 MG in SODIUM CHLORIDE 0.9% 100 ML 100 ML IV SCH (09:00)
[2021-04-08] MEDS: HYDROCORTISONE SOD SUCCINATE 100 MG VIAL IV SCH ×2 (10:00→17:16)
[2021-04-08] MEDS ORDERED: ACETAMINOPHEN 1000 MG/100 ML 100 ML IV ONE (10:16)
[2021-04-08] MEDS ORDERED: PROPOFOL IV EMULSION 10 MG/ML 20 ML VIAL ONE (12:20)
[2021-04-08] MEDS ORDERED: SEVOFLURANE INHAL SOLN 250 ML PEN BTL ONE (12:20)
[2021-04-08] MEDS ORDERED: ACETAMINOPHEN 1000 MG/100 ML IV ONE (12:20)
[2021-04-08] MEDS ORDERED: ROCURONIUM BROMIDE 10 MG/ML 5ML VIAL IV ONE (12:20)
[2021-04-08] MEDS ORDERED: LIDOCAINE HCL 2% LOCAL INJ 5 ML SDV VIAL INJ ONE (12:20)
[2021-04-08] MEDS ORDERED: FENTANYL CITRATE/PF 100MCG/2 ML INJ ONE (13:36)
[2021-04-08] MEDS ORDERED: MORPHINE SULFATE INJ 4 MG/ML INJ 1ML ONE (14:10)
[2021-04-08] MEDS ORDERED: HYDROMORPHONE 1MG/1ML INJ ONE (14:19)
[2021-04-08] MEDS: DEXTROSE 5%/0.9% SOD CHL 1,000 ML IV SCH (14:38)
[2021-04-08] MEDS: SODIUM CHLORIDE 0.9% 250ML IRRIG IR SCH ×3 (14:38→20:25)
[2021-04-08] MEDS ORDERED: METOPROLOL TARTRATE INJ 1 MG/ML VIAL IV PRN ×2 (17:30→21:30)
[2021-04-08] MEDS: PROMETHAZINE 25MG/ NS 50ML (IV) IV PRN (17:56)
[2021-04-08] MEDS: ATORVASTATIN 40 MG TAB PO SCH (20:24)
[2021-04-08] MEDS: CARVEDILOL 3.125 MG TAB PO SCH (20:25)
[2021-04-08] MEDS: LOSARTAN POTASSIUM 25 MG TAB PO SCH (20:25)
[2021-04-09] VITALS (60 sets, daily range): BP systolic 116–204; BP diastolic 49–158
[2021-04-09] MEDS: HYDROCORTISONE SOD SUCCINATE 100 MG VIAL IV SCH ×3 (02:12→17:45)
[2021-04-09] MEDS: SODIUM CHLORIDE 0.9% 250ML IRRIG IR SCH ×4 (02:12→13:30)
[2021-04-09] MEDS: MEROPENEM 1GM 100 ML IV SCH ×2 (02:12→13:34)
[2021-04-09] MEDS: MORPHINE SULFATE INJ 2 MG/ML SYR IV PRN ×4 (02:20→19:36)
[2021-04-09] MEDS: ONDANSETRON HCL INJ 2MG/ML 2ML 2 MG/ML VIAL IV PRN ×2 (02:30→19:40)
[2021-04-09] MEDS: NITROGLYCERIN/D5W 200 MCG/ML 250 ML IV SCH (03:04)
[2021-04-09] MEDS: SODIUM CHLORIDE 0.9% 1000ML 1,000 ML IV SCH (03:45)
[2021-04-09] MEDS: PROMETHAZINE 25MG/ NS 50ML (IV) IV PRN (05:50)
[2021-04-09] MEDS: INSULIN REGULAR, HUMAN 100 UNIT/1 ML 3ML VIAL SQ SCH ×4 (06:00→23:30)
[2021-04-09 06:25] LABS: BASOPHILS % 0.4 % (0.0-1.0); HEMATOCRIT 30.6 % (34.2-44.1); HEMOGLOBIN 9.8 g/dL (12.0-16.0); LYMPHOCYTES # (AUTO) 0.4 (1.0-3.2); LYMPHOCYTES % 5.3 % (18.0-39.1); MEAN CORPUSCULAR HEMOGLOBIN 30.4 pg (28-32); MONOCYTES # (AUTO) 0.2 (0.2-0.8); MONOCYTES % 2.6 % (4.4-11.3); NEUTROPHILS # (AUTO) 6.5 (2.1-6.9); NEUTROPHILS % 90.3 % (38.7-80.0); PLATELET COUNT 96 x10e3/uL (140-360); RED BLOOD COUNT 3.22 x10e6/uL (3.6-5.1)
[2021-04-09] MEDS: METRONIDAZOLE 500MG/NS 100ML 100 ML IV SCH ×4 (06:39→23:30)
[2021-04-09 06:51] LABS: ALBUMIN/GLOBULIN RATIO 0.6 (0.8-2.0); CALCIUM 8.5 mg/dL (8.4-10.2); CREATININE, SERUM 1.16 mg/dL (0.57-1.11)
[2021-04-09] MEDS: CARVEDILOL 3.125 MG TAB PO SCH (07:59)
[2021-04-09] MEDS: LOSARTAN POTASSIUM 25 MG TAB PO SCH (08:00)
[2021-04-09] MEDS: IRON SUCROSE 100 MG in SODIUM CHLORIDE 0.9% 100 ML 100 ML IV SCH (08:36)
[2021-04-09] MEDS ORDERED: CARVEDILOL 12.5 MG TAB PO SCH (09:00)
[2021-04-09] MEDS ORDERED: LOSARTAN POTASSIUM 25 MG TAB PO SCH (09:00)
[2021-04-09] MEDS: LOSARTAN POTASSIUM 100 MG TAB PO SCH (09:04)
[2021-04-09 10:23] LABS: ANISOCYTOSIS SLIGHT; LYMPHOCYTES % (MANUAL) 3 % (19-48); MONOCYTES % (MANUAL) 1 % (3.4-9.0); NEUTROPHILS % (MANUAL) 96 % (40-74); PLATELET ESTIMATE SLIGHTLY DECREASED; PLATELET MORPHOLOGY COMMENT NORMAL; RBC MORPHOLOGY COMMENT NORMAL
[2021-04-09] MEDS ORDERED: FENTANYL 75MCG/HR PATCH TD SCH (10:30)
[2021-04-09] MEDS: DEXTROSE 5%/0.9% SOD CHL 1,000 ML IV SCH (16:15)
[2021-04-09] MEDS: ATORVASTATIN 40 MG TAB PO SCH (21:00)
[2021-04-09] MEDS ORDERED: NALOXONE HCL 2MG/2 ML SYRINGE ONE (22:35)
[2021-04-09] MEDS: HYDRALAZINE HCL 20 MG/ML VIAL IV PRN (23:42)
[2021-04-10] VITALS (44 sets, daily range): BP systolic 142–199; BP diastolic 57–94
[2021-04-10] MEDS ORDERED: ACETAMINOPHEN 1000 MG/100 ML IV PRN (00:15)
[2021-04-10] MEDS ORDERED: ACETAMINOPHEN 1000 MG/100 ML 100 ML IV ONE (01:04)
[2021-04-10] MEDS: MORPHINE SULFATE INJ 2 MG/ML SYR IV PRN ×2 (01:33→22:01)
[2021-04-10] MEDS: HYDROCORTISONE SOD SUCCINATE 100 MG VIAL IV SCH ×3 (02:00→18:06)
[2021-04-10] MEDS: NITROGLYCERIN/D5W 200 MCG/ML 250 ML IV SCH (03:00)
[2021-04-10] MEDS: MEROPENEM 1GM 100 ML IV SCH ×2 (03:48→14:18)
[2021-04-10] MEDS: HYDRALAZINE HCL 20 MG/ML VIAL IV PRN ×3 (04:46→13:18)
[2021-04-10] MEDS: METRONIDAZOLE 500MG/NS 100ML 100 ML IV SCH ×4 (04:47→23:10)
[2021-04-10] MEDS: INSULIN REGULAR, HUMAN 100 UNIT/1 ML 3ML VIAL SQ SCH ×3 (06:00→18:33)
[2021-04-10 07:05] LABS: BASOPHILS # (AUTO) 0.1 (0.0-0.1); BASOPHILS % 0.5 % (0.0-1.0); EOSINOPHILS % 0.2 % (0.0-6.0); HEMATOCRIT 29.5 % (34.2-44.1); HEMOGLOBIN 9.6 g/dL (12.0-16.0); LYMPHOCYTES # (AUTO) 0.8 (1.0-3.2); LYMPHOCYTES % 7.8 % (18.0-39.1); MEAN CORPUSCULAR HGB CONC 32.5 g/dL (31-35); MEAN CORPUSCULAR VOLUME 92.2 fL (81-99); MONOCYTES # (AUTO) 0.3 (0.2-0.8); MONOCYTES % 3.4 % (4.4-11.3); NEUTROPHILS # (AUTO) 8.6 (2.1-6.9); NEUTROPHILS % 87.1 % (38.7-80.0); PLATELET COUNT 107 x10e3/uL (140-360); RED CELL DISTRIBUTION WIDTH 15.9 % (11.7-14.4)
[2021-04-10 07:29] LABS: ALANINE AMINOTRANSFERASE 12 IU/L (0-55); ALBUMIN 1.9 g/dL (3.5-5.0); ALBUMIN/GLOBULIN RATIO 0.6 (0.8-2.0); ALKALINE PHOSPHATASE 53 IU/L (40-150); ANION GAP 11.3 mmol/L (8-16); BLOOD UREA NITROGEN 13 mg/dL (7-26); BUN/CREATININE RATIO 14 (6-25); CALCIUM 8.4 mg/dL (8.4-10.2); CARBON DIOXIDE 20 mmol/L (22-29); CHLORIDE 103 mmol/L (98-107); EST GLOMERULAR FILTRATION RATE > 60 ML/MIN (60-); GLUCOSE 183 mg/dL (74-118); POTASSIUM 3.3 mmol/L (3.5-5.1); SODIUM 131 mmol/L (136-145)
[2021-04-10] MEDS: CARVEDILOL 12.5 MG TAB PO SCH (07:54)
[2021-04-10] MEDS: LOSARTAN POTASSIUM 100 MG TAB PO SCH (07:54)
[2021-04-10] MEDS ORDERED: NICARDIPINE 20MG/200ML PREMIX 200 ML IV SCH (09:00)
[2021-04-10] MEDS: IRON SUCROSE 100 MG in SODIUM CHLORIDE 0.9% 100 ML 100 ML IV SCH (09:42)
[2021-04-10] MEDS: DEXTROSE 5%/0.9% SOD CHL 1,000 ML IV SCH (12:48)
[2021-04-10] MEDS ORDERED: POTASSIUM CHLORIDE 20MEQ/100ML 100 ML IV ONE ×2 (13:15→16:00)
[2021-04-10] MEDS: PROMETHAZINE 25MG/ NS 50ML (IV) IV PRN (13:58)
[2021-04-10] MEDS: EPOETIN ALFA-EPBX 10,000 UNIT/ML VIAL SC PRN (14:17)
[2021-04-10] MEDS: NICARDIPINE 20MG/200ML PREMIX 200 ML IV PRN ×2 (15:08→20:50)
[2021-04-10] MEDS: ONDANSETRON HCL INJ 2MG/ML 2ML 2 MG/ML VIAL IV PRN ×2 (17:03→21:47)
[2021-04-10] MEDS: ATORVASTATIN 40 MG TAB PO SCH (21:55)
[2021-04-11] VITALS (31 sets, daily range): BP systolic 115–171; BP diastolic 58–82
[2021-04-11] MEDS: NICARDIPINE 20MG/200ML PREMIX 200 ML IV PRN ×6 (01:00→23:10)
[2021-04-11] MEDS: HYDROCORTISONE SOD SUCCINATE 100 MG VIAL IV SCH ×3 (02:11→18:25)
[2021-04-11] MEDS: MEROPENEM 1GM 100 ML IV SCH ×2 (02:24→13:59)
[2021-04-11] MEDS: METRONIDAZOLE 500MG/NS 100ML 100 ML IV SCH ×4 (05:23→23:31)
[2021-04-11 05:56] LABS: BASOPHILS % 0.3 % (0.0-1.0); HEMATOCRIT 31.3 % (34.2-44.1); HEMOGLOBIN 10.3 g/dL (12.0-16.0); LYMPHOCYTES # (AUTO) 0.4 (1.0-3.2); LYMPHOCYTES % 4.6 % (18.0-39.1); MEAN CORPUSCULAR HEMOGLOBIN 30.5 pg (28-32); MEAN CORPUSCULAR HGB CONC 32.9 g/dL (31-35); MEAN CORPUSCULAR VOLUME 92.6 fL (81-99); MONOCYTES # (AUTO) 0.3 (0.2-0.8); MONOCYTES % 3.3 % (4.4-11.3); NEUTROPHILS % 90.8 % (38.7-80.0); PLATELET COUNT 92 x10e3/uL (140-360); RED BLOOD COUNT 3.38 x10e6/uL (3.6-5.1); RED CELL DISTRIBUTION WIDTH 15.9 % (11.7-14.4)
[2021-04-11] MEDS: INSULIN REGULAR, HUMAN 100 UNIT/1 ML 3ML VIAL SQ SCH ×5 (05:59→23:59)
[2021-04-11] MEDS: ONDANSETRON HCL INJ 2MG/ML 2ML 2 MG/ML VIAL IV PRN (06:06)
[2021-04-11] MEDS: MORPHINE SULFATE INJ 2 MG/ML SYR IV PRN (06:16)
[2021-04-11] MEDS: CARVEDILOL 12.5 MG TAB PO SCH (07:45)
[2021-04-11] MEDS: LOSARTAN POTASSIUM 100 MG TAB PO SCH (07:45)
[2021-04-11] MEDS: IRON SUCROSE 100 MG in SODIUM CHLORIDE 0.9% 100 ML 100 ML IV SCH (08:37)
[2021-04-11] MEDS: FENTANYL 50 MCG/HR PATCH TOP SCH (09:29)
[2021-04-11 09:38] LABS: ANION GAP 11.5 mmol/L (8-16); BLOOD UREA NITROGEN 15 mg/dL (7-26); BUN/CREATININE RATIO 17 (6-25); CALCIUM 7.9 mg/dL (8.4-10.2); CARBON DIOXIDE 19 mmol/L (22-29); CHLORIDE 106 mmol/L (98-107); CREATININE, SERUM 0.89 mg/dL (0.57-1.11); EST GLOMERULAR FILTRATION RATE > 60 ML/MIN (60-); GLUCOSE 157 mg/dL (74-118); POTASSIUM 3.5 mmol/L (3.5-5.1); SODIUM 133 mmol/L (136-145)
[2021-04-11] MEDS: ENOXAPARIN SOD INJ 40 MG/0.4 ML SYR SC SCH (11:03)
[2021-04-11 11:20] LABS: ALBUMIN 1.8 g/dL (3.5-5.0); ALBUMIN/GLOBULIN RATIO 0.6 (0.8-2.0); ANION GAP 11.7 mmol/L (8-16); CALCIUM 7.7 mg/dL (8.4-10.2); CREATININE, SERUM 0.96 mg/dL (0.57-1.11); POTASSIUM 3.7 mmol/L (3.5-5.1)
[2021-04-11] MEDS ORDERED: POTASSIUM CHLORIDE 10MEQ/100ML 200 ML IV ONE (12:30)
[2021-04-11] MEDS ORDERED: POTASSIUM CHLORIDE 20MEQ/100ML 100 ML IV ONE (13:00)
[2021-04-11] MEDS: DEXTROSE 5%/0.9% SOD CHL 1,000 ML IV SCH (15:46)
[2021-04-11] MEDS ORDERED: ACETAMINOPHEN 1000 MG/100 ML IV PRN (16:00)
[2021-04-11] MEDS ORDERED: KETOROLAC TROMETHAMINE 30 MG/ML VIAL IV PRN (18:00)
[2021-04-11] MEDS: ATORVASTATIN 40 MG TAB PO SCH (21:18)
[2021-04-12] VITALS (38 sets, daily range): BP systolic 123–159; BP diastolic 54–76
[2021-04-12] MEDS: NICARDIPINE 20MG/200ML PREMIX 200 ML IV PRN ×4 (02:30→23:07)
[2021-04-12] MEDS: HYDROCORTISONE SOD SUCCINATE 100 MG VIAL IV SCH ×3 (02:51→17:40)
[2021-04-12] MEDS: MEROPENEM 1GM 100 ML IV SCH ×2 (02:53→14:41)
[2021-04-12] MEDS: METRONIDAZOLE 500MG/NS 100ML 100 ML IV SCH ×4 (05:01→22:51)
[2021-04-12] MEDS: INSULIN REGULAR, HUMAN 100 UNIT/1 ML 3ML VIAL SQ SCH ×3 (06:00→17:54)
[2021-04-12] MEDS: DEXTROSE 5%/0.9% SOD CHL 1,000 ML IV SCH (06:42)
[2021-04-12] MEDS ORDERED: ONDANSETRON HCL INJ 2MG/ML 2ML 2 MG/ML VIAL IV PRN (08:30)
[2021-04-12] MEDS: PANTOPRAZOLE 40 MG 10ML VIAL IV SCH ×2 (08:44→21:31)
[2021-04-12] MEDS: LOSARTAN POTASSIUM 100 MG TAB PO SCH (08:44)
[2021-04-12] MEDS: ENOXAPARIN SOD INJ 40 MG/0.4 ML SYR SC SCH (08:44)
[2021-04-12] MEDS ORDERED: MORPHINE SULFATE INJ 4 MG/ML INJ 1ML IV PRN (08:45)
[2021-04-12] MEDS ORDERED: BELLADONNA ALK/PHENOBARBITAL 5 ML UDC PO ONE (09:00)
[2021-04-12] MEDS ORDERED: POTASSIUM CHLORIDE 20MEQ/100ML 100 ML IV ONE (09:00)
[2021-04-12 09:07] LABS: BASOPHILS % 0.4 % (0.0-1.0); HEMATOCRIT 32.6 % (34.2-44.1); HEMOGLOBIN 10.4 g/dL (12.0-16.0); LYMPHOCYTES # (AUTO) 0.5 (1.0-3.2); LYMPHOCYTES % 6.2 % (18.0-39.1); MEAN CORPUSCULAR HEMOGLOBIN 30.1 pg (28-32); MEAN CORPUSCULAR HGB CONC 31.9 g/dL (31-35); MEAN CORPUSCULAR VOLUME 94.2 fL (81-99); MONOCYTES # (AUTO) 0.4 (0.2-0.8); MONOCYTES % 5.5 % (4.4-11.3); NEUTROPHILS # (AUTO) 6.3 (2.1-6.9); NEUTROPHILS % 86.8 % (38.7-80.0); PLATELET COUNT 108 x10e3/uL (140-360); RED BLOOD COUNT 3.46 x10e6/uL (3.6-5.1); RED CELL DISTRIBUTION WIDTH 15.8 % (11.7-14.4)
[2021-04-12 09:22] LABS: ANION GAP 12.8 mmol/L (8-16); CREATININE, SERUM 1.03 mg/dL (0.57-1.11); POTASSIUM 3.8 mmol/L (3.5-5.1)
[2021-04-12] MEDS: CARVEDILOL 12.5 MG TAB PO SCH (21:31)
[2021-04-12] MEDS: ATORVASTATIN 40 MG TAB PO SCH (21:31)
[2021-04-13] VITALS (48 sets, daily range): BP systolic 139–179; BP diastolic 55–92
[2021-04-13] MEDS: DEXTROSE 5%/0.9% SOD CHL 1,000 ML IV SCH ×2 (01:09→19:36)
[2021-04-13] MEDS: MEROPENEM 1GM 100 ML IV SCH ×2 (01:36→14:33)
[2021-04-13] MEDS: HYDROCORTISONE SOD SUCCINATE 100 MG VIAL IV SCH ×3 (01:36→17:12)
[2021-04-13] MEDS: NICARDIPINE 20MG/200ML PREMIX 200 ML IV PRN (03:59)
[2021-04-13] MEDS: METRONIDAZOLE 500MG/NS 100ML 100 ML IV SCH ×4 (04:54→23:05)
[2021-04-13 05:16] LABS: BASOPHILS % 0.2 % (0.0-1.0); HEMATOCRIT 29.9 % (34.2-44.1); HEMOGLOBIN 9.6 g/dL (12.0-16.0); LYMPHOCYTES # (AUTO) 0.7 (1.0-3.2); LYMPHOCYTES % 14.4 % (18.0-39.1); MEAN CORPUSCULAR HEMOGLOBIN 30.3 pg (28-32); MEAN CORPUSCULAR HGB CONC 32.1 g/dL (31-35); MEAN CORPUSCULAR VOLUME 94.3 fL (81-99); MONOCYTES # (AUTO) 0.4 (0.2-0.8); MONOCYTES % 8.8 % (4.4-11.3); NEUTROPHILS # (AUTO) 3.7 (2.1-6.9); NEUTROPHILS % 75.8 % (38.7-80.0); PLATELET COUNT 94 x10e3/uL (140-360); RED BLOOD COUNT 3.17 x10e6/uL (3.6-5.1); RED CELL DISTRIBUTION WIDTH 15.7 % (11.7-14.4)
[2021-04-13 05:40] LABS: ALBUMIN 1.7 g/dL (3.5-5.0); ALBUMIN/GLOBULIN RATIO 0.6 (0.8-2.0); ANION GAP 8.6 mmol/L (8-16); CALCIUM 7.7 mg/dL (8.4-10.2); CREATININE, SERUM 0.97 mg/dL (0.57-1.11); POTASSIUM 3.6 mmol/L (3.5-5.1)
[2021-04-13] MEDS: INSULIN REGULAR, HUMAN 100 UNIT/1 ML 3ML VIAL SQ SCH ×5 (05:57→23:13)
[2021-04-13] MEDS: LOSARTAN POTASSIUM 100 MG TAB PO SCH (08:02)
[2021-04-13] MEDS: BALSAM PERU/CASTOR OIL 60 GM OINT...G. TP SCH (08:02)
[2021-04-13] MEDS: PANTOPRAZOLE 40 MG 10ML VIAL IV SCH ×2 (08:02→20:36)
[2021-04-13] MEDS: ENOXAPARIN SOD INJ 40 MG/0.4 ML SYR SC SCH (08:02)
[2021-04-13] MEDS: CARVEDILOL 12.5 MG TAB PO SCH ×2 (08:02→20:37)
[2021-04-13] MEDS: PRAZOSIN HCL 1 MG CAP PO SCH ×2 (11:10→20:38)
[2021-04-13] MEDS ORDERED: METOCLOPRAMIDE HCL 10 MG/2ML VIAL IV ONE (11:30)
[2021-04-13] MEDS: HYDRALAZINE HCL 20 MG/ML VIAL IV PRN ×2 (14:17→18:39)
[2021-04-13] MEDS: ATORVASTATIN 40 MG TAB PO SCH (20:36)
[2021-04-14] VITALS (20 sets, daily range): BP systolic 140–182; BP diastolic 53–92
[2021-04-14] MEDS: HYDROCORTISONE SOD SUCCINATE 100 MG VIAL IV SCH ×3 (02:03→20:36)
[2021-04-14] MEDS: MEROPENEM 1GM 100 ML IV SCH ×2 (02:03→16:39)
[2021-04-14 04:50] LABS: BASOPHILS % 0.3 % (0.0-1.0); HEMATOCRIT 29.5 % (34.2-44.1); HEMOGLOBIN 9.2 g/dL (12.0-16.0); LYMPHOCYTES # (AUTO) 0.6 (1.0-3.2); LYMPHOCYTES % 17.1 % (18.0-39.1); MEAN CORPUSCULAR HGB CONC 31.2 g/dL (31-35); MEAN CORPUSCULAR VOLUME 96.1 fL (81-99); MONOCYTES # (AUTO) 0.4 (0.2-0.8); MONOCYTES % 10.8 % (4.4-11.3); NEUTROPHILS # (AUTO) 2.5 (2.1-6.9); NEUTROPHILS % 70.7 % (38.7-80.0); PLATELET COUNT 86 x10e3/uL (140-360); RED BLOOD COUNT 3.07 x10e6/uL (3.6-5.1); RED CELL DISTRIBUTION WIDTH 16.1 % (11.7-14.4)
[2021-04-14 05:14] LABS: ALANINE AMINOTRANSFERASE 9 IU/L (0-55); ALBUMIN 1.8 g/dL (3.5-5.0); ALBUMIN/GLOBULIN RATIO 0.7 (0.8-2.0); ALKALINE PHOSPHATASE 44 IU/L (40-150); ANION GAP 8.4 mmol/L (8-16); BLOOD UREA NITROGEN 25 mg/dL (7-26); BUN/CREATININE RATIO 27 (6-25); CALCIUM 7.8 mg/dL (8.4-10.2); CARBON DIOXIDE 19 mmol/L (22-29); CHLORIDE 116 mmol/L (98-107); CREATININE, SERUM 0.92 mg/dL (0.57-1.11); EST GLOMERULAR FILTRATION RATE > 60 ML/MIN (60-); GLUCOSE 160 mg/dL (74-118); POTASSIUM 3.4 mmol/L (3.5-5.1); SODIUM 140 mmol/L (136-145)
[2021-04-14] MEDS: METOCLOPRAMIDE HCL 10 MG/2ML VIAL IV SCH ×3 (05:24→18:30)
[2021-04-14] MEDS: METRONIDAZOLE 500MG/NS 100ML 100 ML IV SCH ×4 (05:24→18:30)
[2021-04-14] MEDS: INSULIN REGULAR, HUMAN 100 UNIT/1 ML 3ML VIAL SQ SCH ×4 (05:36→20:36)
[2021-04-14 05:37] LABS: % IRON SATURATION 48 % (15-50); IRON 58 ug/dL (50-170); TOTAL IRON BINDING CAPACITY 122 ug/dL (261-478); TRANSFERRIN 87 mg/dL (180-382)
[2021-04-14] MEDS: PANTOPRAZOLE 40 MG 10ML VIAL IV SCH (08:27)
[2021-04-14] MEDS: CARVEDILOL 12.5 MG TAB PO SCH ×2 (08:28→20:36)
[2021-04-14] MEDS: LOSARTAN POTASSIUM 100 MG TAB PO SCH (08:28)
[2021-04-14] MEDS: FENTANYL 50 MCG/HR PATCH TOP SCH (08:29)
[2021-04-14] MEDS: PRAZOSIN HCL 1 MG CAP PO SCH ×2 (08:29→20:36)
[2021-04-14] MEDS: BALSAM PERU/CASTOR OIL 60 GM OINT...G. TP SCH (08:29)
[2021-04-14] MEDS: ENOXAPARIN SOD INJ 40 MG/0.4 ML SYR SC SCH (08:29)
[2021-04-14] MEDS: CALCIUM CARBONATE 500 MG CHEWABLE TABS PO PRN (08:38)
[2021-04-14] MEDS ORDERED: SODIUM CHLORIDE 0.9% 250ML 250 ML ONE (10:58)
[2021-04-14] MEDS ORDERED: FUROSEMIDE INJ 10 MG/ML 2 ML VIAL IV NR (15:15)
[2021-04-14] MEDS ORDERED: POTASSIUM CHLORIDE 20 MEQ TAB CR PO NR (15:15)
[2021-04-14] MEDS: DEXTROSE 5%/0.9% SOD CHL 1,000 ML IV SCH (18:30)
[2021-04-14] MEDS: ATORVASTATIN 40 MG TAB PO SCH (20:36)
[2021-04-15] VITALS (8 sets, daily range): BP systolic 149–185; BP diastolic 55–68
[2021-04-15] MEDS: MEROPENEM 1GM 100 ML IV SCH ×2 (02:29→15:16)
[2021-04-15] MEDS: METOCLOPRAMIDE HCL 10 MG/2ML VIAL IV SCH ×4 (06:00→17:43)
[2021-04-15] MEDS: METRONIDAZOLE 500MG/NS 100ML 100 ML IV SCH ×4 (06:00→23:01)
[2021-04-15] MEDS: INSULIN REGULAR, HUMAN 100 UNIT/1 ML 3ML VIAL SQ SCH ×4 (07:29→20:56)
[2021-04-15] MEDS: PANTOPRAZOLE SOD 40 MG TABEC PO SCH (09:00)
[2021-04-15] MEDS: HYDROCORTISONE SOD SUCCINATE 100 MG VIAL IV SCH ×2 (09:00→22:35)
[2021-04-15] MEDS: ENOXAPARIN SOD INJ 40 MG/0.4 ML SYR SC SCH (09:01)
[2021-04-15] MEDS: LOSARTAN POTASSIUM 100 MG TAB PO SCH (09:01)
[2021-04-15] MEDS: PRAZOSIN HCL 1 MG CAP PO SCH ×2 (09:01→20:55)
[2021-04-15] MEDS: BALSAM PERU/CASTOR OIL 60 GM OINT...G. TP SCH (09:01)
[2021-04-15] MEDS: CARVEDILOL 12.5 MG TAB PO SCH ×2 (09:01→20:55)
[2021-04-15] MEDS: HYDROMORPHONE 1MG/1ML INJ IV PRN (11:51)
[2021-04-15] MEDS ORDERED: POTASSIUM CHLORIDE 20 MEQ TAB CR PO ONE (14:30)
[2021-04-15] MEDS ORDERED: SODIUM CHLORIDE 0.9% 50ML 50 ML ONE (17:47)
[2021-04-15] MEDS: ATORVASTATIN 40 MG TAB PO SCH (20:55)
[2021-04-15] MEDS ORDERED: SODIUM CHLORIDE 0.9% 250ML 250 ML ONE (21:17)
[2021-04-15] MEDS: EPOETIN ALFA-EPBX 10,000 UNIT/ML VIAL SC PRN (23:14)
[2021-04-16] VITALS (8 sets, daily range): BP systolic 145–187; BP diastolic 58–74
[2021-04-16] MEDS: MEROPENEM 1GM 100 ML IV SCH ×2 (03:00→15:13)
[2021-04-16 04:36] LABS: HEMATOCRIT 27.9 % (34.2-44.1); LYMPHOCYTES # (AUTO) 0.5 (1.0-3.2); MEAN CORPUSCULAR HEMOGLOBIN 30.5 pg (28-32); MEAN CORPUSCULAR HGB CONC 32.3 g/dL (31-35); MEAN CORPUSCULAR VOLUME 94.6 fL (81-99); MONOCYTES # (AUTO) 0.2 (0.2-0.8); MONOCYTES % 5.8 % (4.4-11.3); NEUTROPHILS # (AUTO) 2.1 (2.1-6.9); NEUTROPHILS % 75.8 % (38.7-80.0); PLATELET COUNT 71 x10e3/uL (140-360); RED BLOOD COUNT 2.95 x10e6/uL (3.6-5.1)
[2021-04-16 04:59] LABS: ANION GAP 9.6 mmol/L (8-16); BLOOD UREA NITROGEN 23 mg/dL (7-26); BUN/CREATININE RATIO 29 (6-25); CALCIUM 8.3 mg/dL (8.4-10.2); CARBON DIOXIDE 21 mmol/L (22-29); CHLORIDE 112 mmol/L (98-107); CREATININE, SERUM 0.78 mg/dL (0.57-1.11); EST GLOMERULAR FILTRATION RATE > 60 ML/MIN (60-); GLUCOSE 117 mg/dL (74-118); MAGNESIUM 1.2 MG/DL (1.3-2.1); POTASSIUM 3.6 mmol/L (3.5-5.1); SODIUM 139 mmol/L (136-145)
[2021-04-16] MEDS: METOCLOPRAMIDE HCL 10 MG/2ML VIAL IV SCH ×4 (06:12→17:26)
[2021-04-16] MEDS: METRONIDAZOLE 500MG/NS 100ML 100 ML IV SCH ×4 (06:18→23:00)
[2021-04-16] MEDS: INSULIN REGULAR, HUMAN 100 UNIT/1 ML 3ML VIAL SQ SCH ×4 (07:30→21:00)
[2021-04-16] MEDS ORDERED: MAGNESIUM SULFATE 2GM/50ML 50 ML IV ONE (08:15)
[2021-04-16] MEDS: PANTOPRAZOLE SOD 40 MG TABEC PO SCH (08:54)
[2021-04-16] MEDS: HYDROCORTISONE SOD SUCCINATE 100 MG VIAL IV SCH ×2 (08:54→21:30)
[2021-04-16] MEDS: LOSARTAN POTASSIUM 100 MG TAB PO SCH (08:55)
[2021-04-16] MEDS: BALSAM PERU/CASTOR OIL 60 GM OINT...G. TP SCH (08:55)
[2021-04-16] MEDS: PRAZOSIN HCL 1 MG CAP PO SCH ×2 (08:55→21:31)
[2021-04-16] MEDS: ENOXAPARIN SOD INJ 40 MG/0.4 ML SYR SC SCH (08:55)
[2021-04-16] MEDS: CARVEDILOL 12.5 MG TAB PO SCH ×2 (08:55→21:31)
[2021-04-16] MEDS: HYDROMORPHONE 1MG/1ML INJ IV PRN ×2 (14:34→17:27)
[2021-04-16] MEDS: ATORVASTATIN 40 MG TAB PO SCH (21:31)
[2021-04-17] VITALS (8 sets, daily range): BP systolic 155–187; BP diastolic 63–80
[2021-04-17] MEDS: MEROPENEM 1GM 100 ML IV SCH ×2 (02:36→13:38)
[2021-04-17 04:46] LABS: HEMATOCRIT 27.7 % (34.2-44.1); HEMOGLOBIN 8.9 g/dL (12.0-16.0); LYMPHOCYTES # (AUTO) 0.4 (1.0-3.2); LYMPHOCYTES % 13.9 % (18.0-39.1); MEAN CORPUSCULAR HEMOGLOBIN 30.4 pg (28-32); MEAN CORPUSCULAR HGB CONC 32.1 g/dL (31-35); MEAN CORPUSCULAR VOLUME 94.5 fL (81-99); MONOCYTES # (AUTO) 0.2 (0.2-0.8); MONOCYTES % 6.4 % (4.4-11.3); NEUTROPHILS # (AUTO) 2.3 (2.1-6.9); PLATELET COUNT 70 x10e3/uL (140-360); RED BLOOD COUNT 2.93 x10e6/uL (3.6-5.1); RED CELL DISTRIBUTION WIDTH 16.1 % (11.7-14.4)
[2021-04-17] MEDS: METRONIDAZOLE 500MG/NS 100ML 100 ML IV SCH ×4 (06:31→22:47)
[2021-04-17] MEDS: METOCLOPRAMIDE HCL 10 MG/2ML VIAL IV SCH ×4 (06:31→16:45)
[2021-04-17] MEDS: INSULIN REGULAR, HUMAN 100 UNIT/1 ML 3ML VIAL SQ SCH ×4 (07:30→21:00)
[2021-04-17] MEDS: CARVEDILOL 12.5 MG TAB PO SCH ×2 (08:46→21:02)
[2021-04-17] MEDS: PANTOPRAZOLE SOD 40 MG TABEC PO SCH (08:46)
[2021-04-17] MEDS: HYDROCORTISONE SOD SUCCINATE 100 MG VIAL IV SCH ×2 (08:46→21:02)
[2021-04-17] MEDS: LOSARTAN POTASSIUM 100 MG TAB PO SCH (08:46)
[2021-04-17] MEDS: PRAZOSIN HCL 1 MG CAP PO SCH ×2 (08:46→21:03)
[2021-04-17] MEDS: BALSAM PERU/CASTOR OIL 60 GM OINT...G. TP SCH (08:47)
[2021-04-17] MEDS: ENOXAPARIN SOD INJ 40 MG/0.4 ML SYR SC SCH (08:47)
[2021-04-17] MEDS: FENTANYL 50 MCG/HR PATCH TOP SCH (08:47)
[2021-04-17] MEDS ORDERED: EPOETIN ALFA-EPBX 10,000 UNIT/ML VIAL SC PRN (10:00)
[2021-04-17] MEDS: CALCIUM CARBONATE 500 MG CHEWABLE TABS PO PRN (14:37)
[2021-04-17] MEDS: HYDROCHLOROTHIAZIDE 25 MG TAB PO SCH (14:39)
[2021-04-17] MEDS ORDERED: LOSARTAN POTASSIUM 100 MG TAB PO SCH (17:00)
[2021-04-17] MEDS: HYDROMORPHONE 1MG/1ML INJ IV PRN (17:31)
[2021-04-17] MEDS: ATORVASTATIN 40 MG TAB PO SCH (21:02)
[2021-04-18] VITALS (8 sets, daily range): BP systolic 143–192; BP diastolic 58–96
[2021-04-18] MEDS: METOCLOPRAMIDE HCL 10 MG/2ML VIAL IV SCH ×4 (00:12→16:51)
[2021-04-18] MEDS: MEROPENEM 1GM 100 ML IV SCH ×2 (01:31→14:00)
[2021-04-18] MEDS: METRONIDAZOLE 500MG/NS 100ML 100 ML IV SCH ×4 (05:00→23:55)
[2021-04-18] MEDS: INSULIN REGULAR, HUMAN 100 UNIT/1 ML 3ML VIAL SQ SCH ×4 (07:30→21:00)
[2021-04-18] MEDS: PANTOPRAZOLE SOD 40 MG TABEC PO SCH (07:30)
[2021-04-18] MEDS: BALSAM PERU/CASTOR OIL 60 GM OINT...G. TP SCH (09:00)
[2021-04-18] MEDS: HYDROCORTISONE SOD SUCCINATE 100 MG VIAL IV SCH ×2 (09:00→21:21)
[2021-04-18] MEDS: CARVEDILOL 12.5 MG TAB PO SCH ×2 (09:00→21:25)
[2021-04-18] MEDS: LOSARTAN POTASSIUM 100 MG TAB PO SCH (09:00)
[2021-04-18] MEDS: PRAZOSIN HCL 1 MG CAP PO SCH ×2 (09:00→21:25)
[2021-04-18] MEDS: HYDROCHLOROTHIAZIDE 25 MG TAB PO SCH (09:00)
[2021-04-18] MEDS: ENOXAPARIN SOD INJ 40 MG/0.4 ML SYR SC SCH (09:00)
[2021-04-18 10:53] LABS: HEMOGLOBIN 9.4 g/dL (12.0-16.0); MEAN CORPUSCULAR HEMOGLOBIN 31.5 pg (28-32); MEAN CORPUSCULAR HGB CONC 32.4 g/dL (31-35); MEAN CORPUSCULAR VOLUME 97.3 fL (81-99); PLATELET COUNT 73 x10e3/uL (140-360); RED BLOOD COUNT 2.98 x10e6/uL (3.6-5.1); RED CELL DISTRIBUTION WIDTH 17.1 % (11.7-14.4)
[2021-04-18 17:11] LABS: BAND NEUTROPHILS % (MANUAL) 2 %; LYMPHOCYTES % (MANUAL) 6 % (19-48); MONOCYTES % (MANUAL) 6 % (3.4-9.0); NEUTROPHILS % (MANUAL) 84 % (40-74); PLATELET ESTIMATE SLIGHTLY DECREASED; PLATELET MORPHOLOGY COMMENT NORMAL
[2021-04-18] MEDS: HYDRALAZINE HCL 20 MG/ML VIAL IV PRN (20:07)
[2021-04-18] MEDS: ATORVASTATIN 40 MG TAB PO SCH (21:25)
[2021-04-18] MEDS ORDERED: POTASSIUM CHLORIDE 20 MEQ TAB CR PO STA (21:49)
[2021-04-18] MEDS ORDERED: HYDRALAZINE HCL 25 MG TAB PO ONE (22:00)
[2021-04-19] VITALS (8 sets, daily range): BP systolic 129–174; BP diastolic 51–70
[2021-04-19] MEDS: MEROPENEM 1GM 100 ML IV SCH ×2 (01:37→14:00)
[2021-04-19] MEDS: HYDRALAZINE HCL 25 MG TAB PO SCH ×3 (05:00→20:32)
[2021-04-19] MEDS: METRONIDAZOLE 500MG/NS 100ML 100 ML IV SCH ×4 (05:14→23:05)
[2021-04-19] MEDS: PANTOPRAZOLE SOD 40 MG TABEC PO SCH (07:30)
[2021-04-19] MEDS: INSULIN REGULAR, HUMAN 100 UNIT/1 ML 3ML VIAL SQ SCH ×4 (07:30→20:33)
[2021-04-19] MEDS ORDERED: FUROSEMIDE INJ 10 MG/ML 2 ML VIAL IV ONE (08:00)
[2021-04-19] MEDS: CARVEDILOL 12.5 MG TAB PO SCH ×2 (09:00→20:33)
[2021-04-19] MEDS: PREDNISONE 5 MG TAB PO SCH (09:00)
[2021-04-19] MEDS: BALSAM PERU/CASTOR OIL 60 GM OINT...G. TP SCH (09:00)
[2021-04-19] MEDS: LOSARTAN POTASSIUM 100 MG TAB PO SCH (09:00)
[2021-04-19] MEDS: HYDROCHLOROTHIAZIDE 25 MG TAB PO SCH (09:00)
[2021-04-19] MEDS: PRAZOSIN HCL 1 MG CAP PO SCH ×2 (09:00→20:33)
[2021-04-19] MEDS: ATORVASTATIN 40 MG TAB PO SCH (20:33)
[2021-04-20] VITALS (7 sets, daily range): BP systolic 142–181; BP diastolic 56–72
[2021-04-20] MEDS: MEROPENEM 1GM 100 ML IV SCH (01:27)
[2021-04-20] MEDS: METRONIDAZOLE 500MG/NS 100ML 100 ML IV SCH (05:47)
[2021-04-20 05:59] LABS: BASOPHILS % 0.3 % (0.0-1.0); EOSINOPHILS % 0.3 % (0.0-6.0); HEMATOCRIT 30.5 % (34.2-44.1); HEMOGLOBIN 9.8 g/dL (12.0-16.0); LYMPHOCYTES # (AUTO) 0.6 (1.0-3.2); MEAN CORPUSCULAR HGB CONC 32.1 g/dL (31-35); MEAN CORPUSCULAR VOLUME 96.5 fL (81-99); MONOCYTES # (AUTO) 0.3 (0.2-0.8); MONOCYTES % 8.6 % (4.4-11.3); NEUTROPHILS % 75.3 % (38.7-80.0); PLATELET COUNT 88 x10e3/uL (140-360); RED BLOOD COUNT 3.16 x10e6/uL (3.6-5.1); RED CELL DISTRIBUTION WIDTH 17.3 % (11.7-14.4)
[2021-04-20] MEDS: INSULIN REGULAR, HUMAN 100 UNIT/1 ML 3ML VIAL SQ SCH ×4 (07:30→21:00)
[2021-04-20] MEDS: HYDRALAZINE HCL 25 MG TAB PO SCH ×3 (10:17→20:28)
[2021-04-20] MEDS: PANTOPRAZOLE SOD 40 MG TABEC PO SCH (10:17)
[2021-04-20] MEDS: HYDROCHLOROTHIAZIDE 25 MG TAB PO SCH (10:18)
[2021-04-20] MEDS: CARVEDILOL 12.5 MG TAB PO SCH ×2 (10:18→20:28)
[2021-04-20] MEDS: LOSARTAN POTASSIUM 100 MG TAB PO SCH (10:18)
[2021-04-20] MEDS: PRAZOSIN HCL 1 MG CAP PO SCH ×2 (10:19→20:28)
[2021-04-20] MEDS: PREDNISONE 5 MG TAB PO SCH (10:19)
[2021-04-20] MEDS: BALSAM PERU/CASTOR OIL 60 GM OINT...G. TP SCH (10:21)
[2021-04-20] MEDS: ATORVASTATIN 40 MG TAB PO SCH (20:28)
[2021-04-21] VITALS: BP 161/78
[2021-04-21 04:00] VITALS: BP 156/62
[2021-04-21] MEDS: INSULIN REGULAR, HUMAN 100 UNIT/1 ML 3ML VIAL SQ SCH ×3 (07:30→16:31)
[2021-04-21 08:19] VITALS: BP 156/62
[2021-04-21] MEDS: PANTOPRAZOLE SOD 40 MG TABEC PO SCH (09:30)
[2021-04-21] MEDS: LOSARTAN POTASSIUM 100 MG TAB PO SCH (09:31)
[2021-04-21] MEDS: CARVEDILOL 12.5 MG TAB PO SCH (09:31)
[2021-04-21] MEDS: HYDRALAZINE HCL 25 MG TAB PO SCH ×2 (09:31→14:11)
[2021-04-21] MEDS: HYDROCHLOROTHIAZIDE 25 MG TAB PO SCH (09:32)
[2021-04-21] MEDS: PRAZOSIN HCL 1 MG CAP PO SCH (09:32)
[2021-04-21] MEDS: PREDNISONE 5 MG TAB PO SCH (09:32)
[2021-04-21] MEDS: BALSAM PERU/CASTOR OIL 60 GM OINT...G. TP SCH (09:36)
[2021-04-21 10:11] VITALS: BP 174/61
[2021-04-21] MEDS ORDERED: ENOXAPARIN SOD INJ 40 MG/0.4 ML SYR SC SCH (11:30)
[2021-04-21] MEDS ORDERED: HEPARIN SOD (PORCINE) 1000 UNIT/ML SDV IV ONE (17:45)
== END 2021-04-21 19:08 | disposition home health service (06) | DRG 853 ==
LOC: ER 09:12 → ERHOLD 11:36 → MED/SURG 15:18 → ICU 19:30 → MED/SURG2 04-14 09:33
PROVIDERS: ADMIT Internal Medicine; ATTEND Internal Medicine
PROC: 30233N1 Transfusion of Nonautologous Red Blood Cells into Peripheral Vein, Percutaneous Approach (ICD-10-PCS; 2021-04-07)
PROC: 0DBP0ZZ Excision of Rectum, Open Approach (ICD-10-PCS; 2021-04-08)
PROC: 02HV33Z Insertion of Infusion Device into Superior Vena Cava, Percutaneous Approach (ICD-10-PCS; 2021-04-08)
PROC: 0D1E0Z4 Bypass Large Intestine to Cutaneous, Open Approach (ICD-10-PCS; 2021-04-08)
PROC: 0DTN0ZZ Resection of Sigmoid Colon, Open Approach (ICD-10-PCS; principal; 2021-04-08 09:23)
DX: A41.9 Sepsis, unspecified organism (principal); K57.21 Diverticulitis of large intestine with perforation and abscess with bleeding; K65.0 Generalized (acute) peritonitis; C79.51 Secondary malignant neoplasm of bone; I13.0 Hypertensive heart and chronic kidney disease with heart failure and stage 1 through stage 4 chronic kidney disease, or unspecified chronic kidney disease; D84.81 Immunodeficiency due to conditions classified elsewhere; M86.8X7 Other osteomyelitis, ankle and foot; I50.9 Heart failure, unspecified; M32.9 Systemic lupus erythematosus, unspecified; C53.9 Malignant neoplasm of cervix uteri, unspecified; E11.22 Type 2 diabetes mellitus with diabetic chronic kidney disease; N18.30 Chronic kidney disease, stage 3 unspecified; D64.9 Anemia, unspecified; I16.0 Hypertensive urgency; Z66 Do not resuscitate; F41.9 Anxiety disorder, unspecified; K21.9 Gastro-esophageal reflux disease without esophagitis; D63.1 Anemia in chronic kidney disease; D63.0 Anemia in neoplastic disease; D69.6 Thrombocytopenia, unspecified; E11.69 Type 2 diabetes mellitus with other specified complication; D72.819 Decreased white blood cell count, unspecified; E66.9 Obesity, unspecified; Z91.041 Radiographic dye allergy status; Z91.013 Allergy to seafood; Z79.4 Long term (current) use of insulin; Z87.891 Personal history of nicotine dependence; Z85.42 Personal history of malignant neoplasm of other parts of uterus; Z68.36 Body mass index [BMI] 36.0-36.9, adult; E87.6 Hypokalemia; Z89.422 Acquired absence of other left toe(s); E11.42 Type 2 diabetes mellitus with diabetic polyneuropathy; Z20.822 Contact with and (suspected) exposure to COVID-19
CPT/HCPCS: 36415; 71045; 71250; 74176; 80048; 80053; 81001; 82550; 82553; 82607; 82728; 82746; 82948; 83540; 83690; 83735; 84443; 84466; 84484; 85007; 85025; 85027; 85045; 85610; 85730; 86850; 86900; 86920; 87040; 87071; 87086; 87186; 87205; 88307; 93005; 93306; 93925; 96361; 96372; 97139; 97605; 99251; 99284; J0360; J1170; J1650; J1720; J1756; J1817; J1885; J1940; J2001; J2270; J2310; J2405; J2543; J2550; J2765; J3010; J3475; J3480; J7030; J7040; J7042; J7050; J7512; J7799; P9016; U0002